=== PATIENT | female | born 1955 | race Caucasian/White ===

== ENCOUNTER 2022-06-24 20:05 | Observation (INO) ==
--- NOTE | 2022-06-24 20:37 | Emergency Department Note ---
Impression & Plan Elevated troponin I level, Numbness and tingling in left arm ED Provider Note NAME: ZCAH CARTAGENA AGE: 66 SEX: F : 1955 ARRIVES VIA: Walk-In INFORMANT: Patient, ED PROVIDER(S): Manjit Valderrama MD CHIEF COMPLAINT: Left upper extremity tingling, dizziness MEDICAL DECISION MAKING: Patient presented for left upper extremity tingling and dizziness. The patient did have blood work completed along with an EKG. I did call the lab to add a troponin is protocols have been initiated. CT of the head was obtained. I did review the CT which shows the possibility of blood versus calcification which was also commented on by the reading physician Rm Camejo MD. the patient does complain of some left upper extremity soreness but does not have any overt weakness at least on exam. Good [id number]. There is no evidence of any possible shift seen on her CT of the head. Repeat EKG was obtained as the patient's symptoms initially lasted 30 minutes and had since resolved but then returned upon going to CAT scan. The patient's initial troponin is negative but a repeat was running. The patient has a normal H&H and platelet count with very mild leukopenia at 4.5. Kidney function is unremarkable. Coags unremarkable. Patient's repeat troponin was 18. I did order aspirin but the inpatient service did not want this. Lyme's test and COVID-negative. I did speak with Dr. York with [facility] neurology who did review the imaging. He states that he believes this area to be most likely a calcification less likely blood and either recommended an MRI versus a repeat CT. MRI was ordered. Patient did receive nitro. The patient has no further symptoms at this time. I did discuss the case with the on-call ospitalist service Dr. Pittman and the patient was admitted to the medicine service. The patient's third EKG did show T wave inversions which were not present prior but the patient has no ST elevations. Patient has no current symptoms. The patient has never had any chest pains. Most recent troponin is 18, slightly elevated. ASA ordered but the inpatient service did not want any antiplatelets because of the CT of the head findings prior to MRI, and thus did not want heparin to be ordered either. MRI was pending at the time of admission. Prior /Outside records reviewed: None Differential diagnosis: Infection, dehydration, metabolic abnormality, hypo/hyperglycemia, electrolyte disturbance, anemia, hypoxia, cardiac sources, intracerebral event, toxicologic, neurologic, as well as other pathologies. Diagnostics, as interpreted by me: ECG: Sinus bradycardia, rate of 50, normal intervals normal axis T wave version anteriorly with ST depressions laterally. Repeat EKG interpreted by me sinus bradycardia, rate of 59, normal intervals normal axis no ST elevations. Repeat EKG interpreted by me Sinus bradycardia rate of 56, normal intervals normal axis T wave versions anteriorly no ST depressions in the lateral leads. T wave inversion in [address] elevations. Cardiac monitoring: An order was placed for continuous cardiac monitoring. The monitor shows a rate of 62 with sinus rhythm. Patient was placed on pulse oximetry Medical decision rules: None Imaging studies: See below I informally reviewed the patient's CT of the head which does show calcification versus small area of blood at the falx HPI: Patient presents with daughter at bedside due to concern for left upper extremity tingling. Patient states that this initially started around the time of dinner and she got very lightheaded and dizzy. No reported head headache. Patient denies any recent falls or trauma no prior history of stroke or mini stroke. Patient denies any prior history of heart or lung disease. No leg swelling or calf pain. Patient's initial episode lasted approximate 30 minutes and resolved and upon presentation the emergency department seem to have improved but this did worsen upon going to CAT scan. Patient denies any chest pains or shortness of breath. The patient does complain of generalized weakness as well as dizziness. Patient denies any nausea or vomiting and no diarrhea. No infectious symptoms. Daughter reported that patient's speech was slow and deliberate but no obvious slurring or dysarthria. Patient has had some recent stress ongoing as her dog was recently hit by a car which she witnessed. PAST MEDICAL HISTORY: See Below PAST SURGICAL HISTORY: See Below SOCIAL HISTORY: See Below HOME MEDICATIONS: See Below ALLERGIES: See Below VITALS: See Below PHYSICAL EXAMINATION: GENERAL: NAD, wearing a mask, non-toxic. EYE EXAM: Normal conjunctiva. PERRL, no anisocoria and EOM's grossly intact w/o pain. NECK: Supple, no nuchal rigidity, no adenopathy, non-tender. No signs of meningismus. FROM of the neck with good chin to chest and neck extension. No stridor. LUNGS: Clear to auscultation. Normal chest wall mechanics. HEART: NSR, no MRG. ABDOMEN: Abdomen soft, non-tender, no masses, no rebound or guarding. BACK: No CVA TTP. SKIN: No rashes and no bruising. UPPER EXTREMITIES: Upper extremities are grossly normal. LOWER EXTREMITIES: Grossly normal, no edema. NEURO EXAM: A&O x3, cranial nerves II-XII grossly intact, normal speech, moves all 4 extremities. Good [id number], no drift and no sensory deficits. 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); Hx Alcohol Use: Yes Alcohol type: beer and wine Hx Substance Use: No Preferred Language: Citizen Of [place] Communication Ability: Effective Trade Sales Assistant Required: No Beliefs That Will Affect Care: None Current Living Situation: Alone Other Information That Helps Us Care for You: No Feels Safe at Home: Yes Safety Concerns: Feels Safe At This Time Assistive Devices: None Allergies Allergies Allergy/AdvReac Type Severity Reaction Status Date / Time No Known Allergies Allergy Unverified 06/24/22 22:26 Home Meds Home Medications Medication Instructions Recorded Confirmed losartan 50 mg tablet 50 mg PO HS 06/24/22 06/24/22 Previous Rx's Medication Instructions Recorded aspirin 81 mg tablet,delayed 81 mg PO DAILY #90 tabs 06/25/22 release atorvastatin 40 mg tablet 40 mg PO HS #30 tabs 06/25/22 metoprolol succinate 100 mg 50 mg PO QAM #30 tabs 06/25/22 tablet,extended release 24 hr Results & Data (ED) Vital Signs Vital Signs - 24 hr 06/24/22 20:22 06/24/22 20:49 06/24/22 20:52 Temperature 36.6 C Temperature Source Temporal Artery Scan Pulse Rate 60 59 L Pulse Rate [Apical] 59 L Pulse Rhythm [Apical] Pulse Strength [Apical] Respiratory Rate 18 14 Respiratory Effort / Characteristics Non-Labored Spontaneous Respiratory Depth Normal Respiratory Pattern Blood Pressure 169/101 H Blood Pressure [Right Arm] 144/81 H Blood Pressure Mean 123 Blood Pressure Mean [Right Arm] 102 Blood Pressure Position [Right Arm] Pulse Oximetry 98 96 Oxygen Delivery Method Room Air Room Air Sepsis Recent Fever Within 48 Hours No Sepsis New/Unexplained Change in Mental Status No Sepsis Action Taken by Nursing No Action Required EWS Level of Consciousness - Last Result EWS Temperature - Last Result EWS Respiratory Rate - Last Result EWS Oxygen Saturation - Last Result EWS Oxygen in Use - Last Result EWS Score EWS Clinical Risk 06/24/22 21:31 06/24/22 23:00 06/25/22 01:32 Temperature 36.5 C Temperature Source Oral Pulse Rate Pulse Rate [Apical] 59 L 59 L 60 Pulse Rhythm [Apical] Regular Pulse Strength [Apical] Normal Respiratory Rate 16 18 18 Respiratory Effort / Characteristics Non-Labored Respiratory Depth Normal Respiratory Pattern Regular Blood Pressure Blood Pressure [Right Arm] 130/79 145/78 H 153/90 H Blood Pressure Mean Blood Pressure Mean [Right Arm] 96 100 111 Blood Pressure Position [Right Arm] Lying Pulse Oximetry 97 97 97 Oxygen Delivery Method Room Air Room Air Room Air Sepsis Recent Fever Within 48 Hours Sepsis New/Unexplained Change in Mental Status Sepsis Action Taken by Nursing EWS Level of Consciousness - Last Result EWS Temperature - Last Result EWS Respiratory Rate - Last Result EWS Oxygen Saturation - Last Result EWS Oxygen in Use - Last Result EWS Score EWS Clinical Risk 06/25/22 03:09 06/25/22 03:11 06/25/22 01:38 Temperature 36.4 C L Temperature Source Oral Pulse Rate 76 Pulse Rate [Apical] 64 Pulse Rhythm [Apical] Pulse Strength [Apical] Respiratory Rate 18 Respiratory Effort / Characteristics Respiratory Depth Respiratory Pattern Blood Pressure Blood Pressure [Right Arm] 165/97 H Blood Pressure Mean Blood Pressure Mean [Right Arm] 119 Blood Pressure Position [Right Arm] Semi-fowlers Pulse Oximetry 97 Oxygen Delivery Method Room Air Sepsis Recent Fever Within 48 Hours Sepsis New/Unexplained Change in Mental Status Sepsis Action Taken by Nursing EWS Level of Consciousness - Last Result Spontaneously Alert EWS Temperature - Last Result 36.4 EWS Respiratory Rate - Last Result 18 EWS Oxygen Saturation - Last Result 97 EWS Oxygen in Use - Last Result No EWS Score 0 EWS Clinical Risk Low Risk 06/25/22 07:00 06/25/22 08:00 06/25/22 09:11 Temperature 36.5 C Temperature Source Oral Pulse Rate 64 Pulse Rate [Apical] 58 L 71 Pulse Rhythm [Apical] Pulse Strength [Apical] Respiratory Rate 16 Respiratory Effort / Characteristics Non-Labored Spontaneous Respiratory Depth Normal Respiratory Pattern Blood Pressure Blood Pressure [Right Arm] 135/73 145/77 H Blood Pressure Mean Blood Pressure Mean [Right Arm] 93 99 Blood Pressure Position [Right Arm] Lying Sitting Pulse Oximetry 97 Oxygen Delivery Method Room Air Sepsis Recent Fever Within 48 Hours Sepsis New/Unexplained Change in Mental Status Sepsis Action Taken by Nursing EWS Level of Consciousness - Last Result EWS Temperature - Last Result EWS Respiratory Rate - Last Result EWS Oxygen Saturation - Last Result EWS Oxygen in Use - Last Result EWS Score EWS Clinical Risk 06/25/22 07:01 06/25/22 11:00 06/25/22 11:01 Temperature 36.4 C L Temperature Source Oral Pulse Rate Pulse Rate [Apical] 55 L Pulse Rhythm [Apical] Pulse Strength [Apical] Respiratory Rate 18 Respiratory Effort / Characteristics Non-Labored Spontaneous Respiratory Depth Normal Respiratory Pattern Blood Pressure Blood Pressure [Right Arm] 155/86 H Blood Pressure Mean Blood Pressure Mean [Right Arm] 109 Blood Pressure Position [Right Arm] Lying Pulse Oximetry 97 Oxygen Delivery Method Room Air Sepsis Recent Fever Within 48 Hours Sepsis New/Unexplained Change in Mental Status Sepsis Action Taken by Nursing EWS Level of Consciousness - Last Result Spontaneously Alert Spontaneously Alert EWS Temperature - Last Result 36.5 36.4 EWS Respiratory Rate - Last Result 16 18 EWS Oxygen Saturation - Last Result 97 97 EWS Oxygen in Use - Last Result No No EWS Score 0 0 EWS Clinical Risk Low Risk Low Risk Home Medications Current Medication List: was personally reviewed by me Laboratory Data Attestation: I reviewed the patient's lab results. 06/24/22 20:32 06/24/22 20:32 Lab Results 06/24/22 06/24/22 06/24/22 Range/Units 20:32 20:32 20:32 WBC 4.50 L (4.8-10.8) K/ul RBC 3.94 L (4.20-5.40) M/uL Hgb 12.8 (12.0-16.0) g/dl Hct 37.1 (37.0-47.0) % MCV 94.2 (80.0-100.0) fL MCH 32.5 (25.0-34.0) pg MCHC 34.5 (32.0-36.0) g/dL RDW Std Deviation 42.2 (36.4-46.3) fL RDW Coeff of Leslie 12.0 (11.5-14.5) % Plt Count 362 (130-400) K/uL MPV 9.7 (9.4-12.4) fL Immature Gran % (Auto) % Neut % (Auto) % Lymph % (Auto) % [place] % (Auto) % Eos % (Auto) % Baso % (Auto) % Neut # (Auto) (1.40-6.50) K/uL Lymph # (Auto) (1.2-3.4) K/uL [place] # (Auto) (0.11-0.59) K/uL Eos # (Auto) (0-0.50) K/uL Baso # (Auto) (0-0.2) K/uL Immature Gran # (Auto) (0.01-0.20) K/uL PT 11.4 (9.0-12.0) Seconds INR 1.0 (0.9-1.1) APTT 27.2 (21.0-31.0) Seconds PTT Ratio 1.0 D-Dimer (0-500) ug/L FEU Sodium 139 (136-145) mmol/L Potassium 3.8 (3.5-5.1) mmol/L Chloride 107 (98-107) mmol/L Carbon Dioxide 24 (21-32) mmol/L Anion Gap 8 (3-11) BUN 18 (6-23) mg/dl Creatinine 0.72 (0.6-1.2) mg/dl Est Cr Clr Drug Dosing 67.3 ml/min Est GFR ( Amer) 101.1 ml/min Est GFR (Non-Af Amer) 87.3 ml/min BUN/Creatinine Ratio 25.0 H (10-20) Glucose 110 H (70-99(Fasting)) mg/dl Estimat Average Glucose mg/dl Hemoglobin A1c (4.5-5.6) % Calcium 9.1 (8.6-10.3) mg/dl Magnesium (1.7-2.4) mg/dl Total Bilirubin 0.6 (0.2-1.0) mg/dl AST 20 (13-39) U/L ALT 11 (7-52) U/L Alkaline Phosphatase 57 (34-104) U/L Troponin I High Sens 3.8 (0-14) pg/ml Total Protein 6.5 (6.0-8.3) gm/dl Albumin 4.1 (3.4-5.0) gm/dl Globulin 2.4 L (2.5-4.0) gm/dl Albumin/Globulin Ratio 1.7 (0.9-2) Triglycerides (0-150) mg/dl Cholesterol (0-200) mg/dl LDL Cholesterol, Calc mg/dl VLDL Cholesterol, Calc (0-30) mg/dl HDL Cholesterol mg/dl Cholesterol/HDL Ratio (0-5) TSH (0.300-4.500) uIu/ml Lyme Disease IgG Ab (Negative) Lyme Disease IgM Ab (Negative) SARS-CoV-2, RNA, NAAT (NEGATIVE) 06/24/22 06/24/22 06/24/22 Range/Units 20:32 20:32 20:32 WBC (4.8-10.8) K/ul RBC (4.20-5.40) M/uL Hgb (12.0-16.0) g/dl Hct (37.0-47.0) % MCV (80.0-100.0) fL MCH (25.0-34.0) pg MCHC (32.0-36.0) g/dL RDW Std Deviation (36.4-46.3) fL RDW Coeff of Leslie (11.5-14.5) % Plt Count (130-400) K/uL MPV (9.4-12.4) fL Immature Gran % (Auto) % Neut % (Auto) % Lymph % (Auto) % [place] % (Auto) % Eos % (Auto) % Baso % (Auto) % Neut # (Auto) (1.40-6.50) K/uL Lymph # (Auto) (1.2-3.4) K/uL [place] # (Auto) (0.11-0.59) K/uL Eos # (Auto) (0-0.50) K/uL Baso # (Auto) (0-0.2) K/uL Immature Gran # (Auto) (0.01-0.20) K/uL PT (9.0-12.0) Seconds INR (0.9-1.1) APTT (21.0-31.0) Seconds PTT Ratio D-Dimer (0-500) ug/L FEU Sodium (136-145) mmol/L Potassium (3.5-5.1) mmol/L Chloride (98-107) mmol/L Carbon Dioxide (21-32) mmol/L Anion Gap (3-11) BUN (6-23) mg/dl Creatinine (0.6-1.2) mg/dl Est Cr Clr Drug Dosing ml/min Est GFR ( Amer) ml/min Est GFR (Non-Af Amer) ml/min BUN/Creatinine Ratio (10-20) Glucose (70-99(Fasting)) mg/dl Estimat Average Glucose 120 mg/dl Hemoglobin A1c 5.8 H (4.5-5.6) % Calcium (8.6-10.3) mg/dl Magnesium (1.7-2.4) mg/dl Total Bilirubin (0.2-1.0) mg/dl AST (13-39) U/L ALT (7-52) U/L Alkaline Phosphatase (34-104) U/L Troponin I High Sens (0-14) pg/ml Total Protein (6.0-8.3) gm/dl Albumin (3.4-5.0) gm/dl Globulin (2.5-4.0) gm/dl Albumin/Globulin Ratio (0.9-2) Triglycerides (0-150) mg/dl Cholesterol (0-200) mg/dl LDL Cholesterol, Calc mg/dl VLDL Cholesterol, Calc (0-30) mg/dl HDL Cholesterol mg/dl Cholesterol/HDL Ratio (0-5) TSH 1.256 (0.300-4.500) uIu/ml Lyme Disease IgG Ab Negative (Negative) Lyme Disease IgM Ab Negative (Negative) SARS-CoV-2, RNA, NAAT (NEGATIVE) 06/24/22 06/24/22 06/24/22 Range/Units 20:32 22:22 22:23 WBC (4.8-10.8) K/ul RBC (4.20-5.40) M/uL Hgb (12.0-16.0) g/dl Hct (37.0-47.0) % MCV (80.0-100.0) fL MCH (25.0-34.0) pg MCHC (32.0-36.0) g/dL RDW Std Deviation (36.4-46.3) fL RDW Coeff of Leslie (11.5-14.5) % Plt Count (130-400) K/uL MPV (9.4-12.4) fL Immature Gran % (Auto) % Neut % (Auto) % Lymph % (Auto) % [place] % (Auto) % Eos % (Auto) % Baso % (Auto) % Neut # (Auto) (1.40-6.50) K/uL Lymph # (Auto) (1.2-3.4) K/uL [place] # (Auto) (0.11-0.59) K/uL Eos # (Auto) (0-0.50) K/uL Baso # (Auto) (0-0.2) K/uL Immature Gran # (Auto) (0.01-0.20) K/uL PT (9.0-12.0) Seconds INR (0.9-1.1) APTT (21.0-31.0) Seconds PTT Ratio D-Dimer < 190 (0-500) ug/L FEU Sodium (136-145) mmol/L Potassium (3.5-5.1) mmol/L Chloride (98-107) mmol/L Carbon Dioxide (21-32) mmol/L Anion Gap (3-11) BUN (6-23) mg/dl Creatinine (0.6-1.2) mg/dl Est Cr Clr Drug Dosing ml/min Est GFR ( Amer) ml/min Est GFR (Non-Af Amer) ml/min BUN/Creatinine Ratio (10-20) Glucose (70-99(Fasting)) mg/dl Estimat Average Glucose mg/dl Hemoglobin A1c (4.5-5.6) % Calcium (8.6-10.3) mg/dl Magnesium 2.2 (1.7-2.4) mg/dl Total Bilirubin (0.2-1.0) mg/dl AST (13-39) U/L ALT (7-52) U/L Alkaline Phosphatase (34-104) U/L Troponin I High Sens 18.1 H D (0-14) pg/ml Total Protein (6.0-8.3) gm/dl Albumin (3.4-5.0) gm/dl Globulin (2.5-4.0) gm/dl Albumin/Globulin Ratio (0.9-2) Triglycerides (0-150) mg/dl Cholesterol (0-200) mg/dl LDL Cholesterol, Calc mg/dl VLDL Cholesterol, Calc (0-30) mg/dl HDL Cholesterol mg/dl Cholesterol/HDL Ratio (0-5) TSH (0.300-4.500) uIu/ml Lyme Disease IgG Ab (Negative) Lyme Disease IgM Ab (Negative) SARS-CoV-2, RNA, NAAT NEGATIVE (NEGATIVE) 06/25/22 06/25/22 06/25/22 Range/Units 03:30 03:30 03:30 WBC 4.71 L (4.8-10.8) K/ul RBC 3.72 L (4.20-5.40) M/uL Hgb 12.0 (12.0-16.0) g/dl Hct 35.8 L (37.0-47.0) % MCV 96.2 (80.0-100.0) fL MCH 32.3 (25.0-34.0) pg MCHC 33.5 (32.0-36.0) g/dL RDW Std Deviation 42.3 (36.4-46.3) fL RDW Coeff of Leslie 12.0 (11.5-14.5) % Plt Count 345 (130-400) K/uL MPV 9.7 (9.4-12.4) fL Immature Gran % (Auto) 0.0 % Neut % (Auto) 49.4 % Lymph % (Auto) 35.7 % [place] % (Auto) 11.3 % Eos % (Auto) 3.0 % Baso % (Auto) 0.6 % Neut # (Auto) 2.33 (1.40-6.50) K/uL Lymph # (Auto) 1.68 (1.2-3.4) K/uL [place] # (Auto) 0.53 (0.11-0.59) K/uL Eos # (Auto) 0.14 (0-0.50) K/uL Baso # (Auto) 0.03 (0-0.2) K/uL Immature Gran # (Auto) 0.00 L (0.01-0.20) K/uL PT (9.0-12.0) Seconds INR (0.9-1.1) APTT 30.6 (21.0-31.0) Seconds PTT Ratio 1.1 D-Dimer (0-500) ug/L FEU Sodium 139 (136-145) mmol/L Potassium 3.8 (3.5-5.1) mmol/L Chloride 107 (98-107) mmol/L Carbon Dioxide 25 (21-32) mmol/L Anion Gap 7 (3-11) BUN 18 (6-23) mg/dl Creatinine 0.58 L (0.6-1.2) mg/dl Est Cr Clr Drug Dosing 82.5 ml/min Est GFR ( Amer) 111.3 ml/min Est GFR (Non-Af Amer) 96.1 ml/min BUN/Creatinine Ratio 31.0 H (10-20) Glucose 102 H (70-99(Fasting)) mg/dl Estimat Average Glucose mg/dl Hemoglobin A1c (4.5-5.6) % Calcium 8.6 (8.6-10.3) mg/dl Magnesium (1.7-2.4) mg/dl Total Bilirubin (0.2-1.0) mg/dl AST (13-39) U/L ALT (7-52) U/L Alkaline Phosphatase (34-104) U/L Troponin I High Sens 377.1 H* D (0-14) pg/ml Total Protein (6.0-8.3) gm/dl Albumin (3.4-5.0) gm/dl Globulin (2.5-4.0) gm/dl Albumin/Globulin Ratio (0.9-2) Triglycerides 50 (0-150) mg/dl Cholesterol 172 (0-200) mg/dl LDL Cholesterol, Calc 85 mg/dl VLDL Cholesterol, Calc 10 (0-30) mg/dl HDL Cholesterol 77 mg/dl Cholesterol/HDL Ratio 2.2 (0-5) TSH (0.300-4.500) uIu/ml Lyme Disease IgG Ab (Negative) Lyme Disease IgM Ab (Negative) SARS-CoV-2, RNA, NAAT (NEGATIVE) 06/25/22 Range/Units 08:16 WBC (4.8-10.8) K/ul RBC (4.20-5.40) M/uL Hgb (12.0-16.0) g/dl Hct (37.0-47.0) % MCV (80.0-100.0) fL MCH (25.0-34.0) pg MCHC (32.0-36.0) g/dL RDW Std Deviation (36.4-46.3) fL RDW Coeff of Leslie (11.5-14.5) % Plt Count (130-400) K/uL MPV (9.4-12.4) fL Immature Gran % (Auto) % Neut % (Auto) % Lymph % (Auto) % [place] % (Auto) % Eos % (Auto) % Baso % (Auto) % Neut # (Auto) (1.40-6.50) K/uL Lymph # (Auto) (1.2-3.4) K/uL [place] # (Auto) (0.11-0.59) K/uL Eos # (Auto) (0-0.50) K/uL Baso # (Auto) (0-0.2) K/uL Immature Gran # (Auto) (0.01-0.20) K/uL PT (9.0-12.0) Seconds INR (0.9-1.1) APTT (21.0-31.0) Seconds PTT Ratio D-Dimer (0-500) ug/L FEU Sodium (136-145) mmol/L Potassium (3.5-5.1) mmol/L Chloride (98-107) mmol/L Carbon Dioxide (21-32) mmol/L Anion Gap (3-11) BUN (6-23) mg/dl Creatinine (0.6-1.2) mg/dl Est Cr Clr Drug Dosing ml/min Est GFR ( Amer) ml/min Est GFR (Non-Af Amer) ml/min BUN/Creatinine Ratio (10-20) Glucose (70-99(Fasting)) mg/dl Estimat Average Glucose mg/dl Hemoglobin A1c (4.5-5.6) % Calcium (8.6-10.3) mg/dl Magnesium (1.7-2.4) mg/dl Total Bilirubin (0.2-1.0) mg/dl AST (13-39) U/L ALT (7-52) U/L Alkaline Phosphatase (34-104) U/L Troponin I High Sens 1283.7 H* D (0-14) pg/ml Total Protein (6.0-8.3) gm/dl Albumin (3.4-5.0) gm/dl Globulin (2.5-4.0) gm/dl Albumin/Globulin Ratio (0.9-2) Triglycerides (0-150) mg/dl Cholesterol (0-200) mg/dl LDL Cholesterol, Calc mg/dl VLDL Cholesterol, Calc (0-30) mg/dl HDL Cholesterol mg/dl Cholesterol/HDL Ratio (0-5) TSH (0.300-4.500) uIu/ml Lyme Disease IgG Ab (Negative) Lyme Disease IgM Ab (Negative) SARS-CoV-2, RNA, NAAT (NEGATIVE) Administered Medications Sodium Chloride (Nss 1000ml) 1,000 mls @ 80 mls/hr IV .[id number] CALEB Stop: 07/25/22 14:14 Last Admin: 06/25/22 14:40 Dose: 80 mls/hr Documented By: ERICKA Metoprolol Succinate (Metoprolol Succ 25mg Ext Rel Tab) 25 mg PO QAM [facility] Stop: 07/25/22 08:59 Last Admin: 06/25/22 09:13 Dose: 25 mg Documented By: VANDANA Co-signed By: EDD Discontinued Medications Aspirin (Aspirin Chew 324 Mg) 324 mg PO NOW STA Stop: 06/24/22 22:54 Last Admin: 06/24/22 23:43 Dose: Not Given Documented By: TERESA Aspirin (Aspirin Chew 324 Mg) 324 mg PO NOW STA Stop: 06/25/22 01:53 Last Admin: 06/25/22 02:01 Dose: 324 mg Documented By: TJ Aspirin (Aspirin 81 Mg Chew) Confirm Administered Dose 81 mg .ROUTE .STK-MED ONE Stop: 06/25/22 09:09 Last Admin: 06/25/22 09:13 Dose: 81 mg Documented By: AERossy Co-signed By: EDD Fentanyl Citrate (Fentanyl Citrate Pf 100 Mcg/2 Ml Vial) Confirm Administered Dose 100 mcg .ROUTE .STK-MED ONE Stop: 06/25/22 13:38 Last Increment: 06/25/22 14:07 Dose: 12.5 mcg Documented By: LI Gadobutrol (Gadobutrol 65ml Vial) 5.5 ml IV ONCE ONE Stop: 06/25/22 00:48 Last Admin: 06/25/22 00:48 Dose: 5.5 ml Documented By: GINNY Heparin Sodium (Porcine) (Heparin Sod 5,000 Unit/0.5 Ml Vial) 5,000 units SQ Q8 CALEB Stop: 07/25/22 05:59 Last Admin: 06/25/22 06:14 Dose: 5,000 units Documented By: TJ Heparin Sodium (Porcine) (Heparin Sod (Porcine) 1000 Unit/Ml) 3,000 units IV TODAY@1130 [facility] Stop: 06/25/22 14:00 Last Admin: 06/25/22 11:36 Dose: 3,000 units Documented By: ERICKA Co-signed By: MANDIE Heparin Sodium (Porcine) (Heparin (Porcine) 1000 Unit/Ml 10 Ml ([employer] Use Only)) Confirm Administered Dose 10,000 units .ROUTE .STK-MED ONE Stop: 06/25/22 13:38 Last Admin: 06/25/22 14:08 Dose: 2,500 units Documented By: LI Heparin Sodium/Dextrose (Heparin 50816 Unit/500 Ml D5w) Confirm Administered Dose 25,000 units IV .STK-MED ONE Stop: 06/25/22 11:08 Last Admin: 06/25/22 11:25 Dose: Not Given Documented By: ERICKA Heparin Sodium/Sodium Chloride (Heparin In Nss Infusion 1000 Unit/500 Ml (2 U/Ml) Bag) Confirm Administered Dose 3,000 units IV .STK-MED ONE Stop: 06/25/22 13:38 Last Admin: 06/25/22 14:39 Dose: Not Given Documented By: ERICKA Sodium Chloride (Nss 1000ml) 500 mls @ 999 mls/hr IV .Q31M ONE Stop: 06/24/22 22:43 Last Infusion: 06/24/22 23:18 Dose: 0 mls/hr Documented By: Admin: 06/24/22 22:21 Dose: 999 mls/hr Documented By: TERESA Lactated Ringer's (Lr) 1,000 mls @ 60 mls/hr IV .[id number] ONE Stop: 06/25/22 16:43 Last Infusion: 06/25/22 14:59 Dose: 0 mls/hr Documented By: Infusion: 06/25/22 12:30 Dose: 0 mls/hr Documented By: Admin: 06/25/22 01:46 Dose: 60 mls/hr Documented By: TJ Heparin Sodium/Dextrose (Heparin Sodium/Dextrose) 25,000 units in 500 mls @ 13 mls/hr IV .Q24H CALEB; Protocol Stop: 07/25/22 11:29 Last Titration: 06/25/22 14:24 Dose: 0 units/hr, 0 mls/hr Documented By: ERICKA Co-signed By: HECTOR Admin: 06/25/22 11:24 Dose: 650 units/hr, 13 mls/hr Documented By: ERICKA Co-signed By: MANDIE Lorazepam (Lorazepam 2 Mg/1 Ml Vial) 1 mg IV ONCE PRN PRN Reason: Anxiety/Agitation Last Admin: 06/24/22 23:15 Dose: 1 mg Documented By: TERESA Losartan Potassium (Losartan Potassium 50 Mg Tab) 50 mg PO NOW STA Stop: 06/24/22 23:58 Last Admin: 06/25/22 01:46 Dose: 50 mg Documented By: TJ Midazolam HCl (Midazolam Hcl 1 Mg/Ml 2ml Vial) Confirm Administered Dose 2 mg .ROUTE .STK-MED ONE Stop: 06/25/22 13:38 Last Increment: 06/25/22 14:08 Dose: 1 mg Documented By: LI Nicardipine HCl (Nicardipine Hcl Inj 2.5 Mg/Ml 10 Ml Amp) Confirm Administered Dose 25 mg .ROUTE .STK-MED ONE Stop: 06/25/22 13:38 Last Admin: 06/25/22 14:40 Dose: Not Given Documented By: ERICKA Nitroglycerin (Nitroglycerin Sl 0.4 Mg/Tab Tab) 0.4 mg SL NOW STA Stop: 06/24/22 22:13 Last Admin: 06/24/22 22:17 Dose: 0.4 mg Documented By: TERESA Nitroglycerin/Dextrose (Nitroglycerin/D5w 100mcg/Ml 20ml Syr) Confirm Administe red Dose 2,000 mcg .ROUTE .STK-MED ONE Stop: 06/25/22 13:39 Last Admin: 06/25/22 14:40 Dose: Not Given Documented By: ERICKA Imaging Data Radiologist's Impression: Chest X-Ray 06/24/22 23:09 XR chest 1V portable HISTORY: Atypical chest pain COMPARISON: None. FINDINGS: The lungs are clear. Cardiac silhouette is top normal in size. No pleural effusions. No pneumothorax. IMPRESSION: No acute process. ACT 112: Negative or not required by law. Electronically signed by: Donte Pichardo M.D. 06/25/2022 8:29 AM Shoulder X-Ray 06/24/22 23:57 XR shoulder LT min 2V routine CLINICAL HISTORY: Left arm numbness and pain. COMPARISON STUDY: None. FINDINGS: No fracture or dislocation within the left shoulder. Moderate degenerative changes noted within the left shoulder. No significant soft tissue swelling. IMPRESSION: Moderate osteoarthritis within the left shoulder. No acute fractures. ACT 112: Negative or not required by law. Electronically signed by: Donte Pichardo M.D. 06/25/2022 8:12 AM Carotid Doppler Study 06/25/22 01:53 BILATERAL CAROTID DOPPLER STUDY HISTORY: Left arm numbness. Transient ischemic attack. COMPARISON: None. TECHNIQUE: Real-time, grayscale, and color Doppler sonography of the carotid arteries was performed. Imaging reviewed in the transverse and longitudinal planes. All measurements were calculated based on NASCET criteria. FINDINGS: Antegrade flow is seen in the bilateral vertebral arteries. Minimal calcified plaque within the bilateral carotid bifurcations. The peak systolic velocity within the right ICA is 63 cm/s. The right systolic ratio is 1.3. The peak systolic velocity within the left ICA is 71 cm/s. The left systolic ratio is 1.3. IMPRESSION: No hemodynamically significant stenosis seen within the carotid arteries. ACT 112: Negative or not required by law. Electronically signed by: Donte Pichardo M.D. 06/25/2022 9:[address] 06/24/22 21:21 CR Exam(s): CT HEAD Without Contrast EXAM: CT Head Without Intravenous Contrast CLINICAL HISTORY: Reason for exam: numbness. TECHNIQUE: Axial computed tomography images of the head/brain without intravenous contrast. CTDI is 36.71 mGy and DLP is 537.48 mGy-cm. Automated exposure control was utilized for the study. A dose lowering technique was utilized adhering to the principles of ALARA. COMPARISON: No relevant prior studies available. FINDINGS: Brain: Hyperdense 4 mm focus along the left side of the falx (series 2 images 20 and 21). This may represent small subdural blood (if there is a history of trauma) versus nonspecific calcification. No mass-effect. No midline shift. Ventricles: Unremarkable. No ventriculomegaly. Bones/joints: Unremarkable. No acute fracture. Soft tissues: Unremarkable. Sinuses: Unremarkable as visualized. No acute sinusitis. Mastoid air cells: Unremarkable as visualized. No mastoid effusion. IMPRESSION: Hyperdense 4 mm focus along the left side of the falx (series 2 images 20 and 21). This may represent small subdural blood (if there is a history of trauma) versus nonspecific calcification. No mass-effect. No midline shift. Consider repeat exam in 24 hours. Communications: Verify Receipt Electronically signed by: Rm Camejo MD 06/24/22 21:49 PM Chest X-Ray 06/24/22 23:09 XR chest 1V portable HISTORY: Atypical chest pain COMPARISON: None. FINDINGS: The lungs are clear. Cardiac silhouette is top normal in size. No pleural effusions. No pneumothorax. IMPRESSION: No acute process. ACT 112: Negative or not required by law. Electronically signed by: Donte Pichardo M.D. 06/25/2022 8:29 AM Shoulder X-Ray 06/24/22 23:57 XR shoulder LT min 2V routine CLINICAL HISTORY: Left arm numbness and pain. COMPARISON STUDY: None. FINDINGS: No fracture or dislocation within the left shoulder. Moderate degenerative changes noted within the left shoulder. No significant soft tissue swelling. IMPRESSION: Moderate osteoarthritis within the left shoulder. No acute fractures. ACT 112: Negative or not required by law. Electronically signed by: Donte Pichardo M.D. 06/25/2022 8:12 AM Brain MRI 06/25/22 00:15 Exam(s): MRI HEAD W/WO Contrast IV Amt: 5.5cc gadavist EXAM: MR Head Without and With Intravenous Contrast CLINICAL HISTORY: Reason for exam: r/o SDH. TECHNIQUE: Magnetic resonance images of the head/brain without and with intravenous contrast in multiple planes. CONTRAST: Patient received 5.5cc gadavist of IV contrast COMPARISON: Comparison made to prior noncontrast head CT from June 24, 2022 at 9:39 PM. FINDINGS: Brain: Mild nonspecific white matter changes. The flow voids at the base of the brain are intact. There is a brightly enhancing dural base lesion along the anterior falx demonstrates the same size, shape and morphology of the dense lesion demonstrated on the prior head CT. No acute infarct. Ventricles: Unremarkable. No ventriculomegaly. Bones/joints: Unremarkable. Sinuses: Unremarkable as visualized. No acute sinusitis. Mastoid air cells: Unremarkable as visualized. No mastoid effusion. Orbits: Unremarkable as visualized. IMPRESSION: No evidence of extra-axial blood. The previously described dense lesion along the falx is consistent with a tiny meningioma Mild nonspecific white matter changes. Electronically signed by: Ese Henley MD 06/25/22 01:35 AM Head MRA 06/25/22 00:15 Exam(s): MRA HEAD Without Contrast EXAM: MR Angiography Head Without Intravenous Contrast CLINICAL HISTORY: Reason for exam: tia. TECHNIQUE: Magnetic resonance angiography images of the head without intravenous contrast. COMPARISON: No relevant prior studies available. FINDINGS: Right internal carotid artery: No acute findings. Intracranial segment is patent with no significant stenosis. No aneurysm. Right anterior cerebral artery: Unremarkable. No occlusion or significant stenosis. No aneurysm. Right middle cerebral artery: Unremarkable. No occlusion or significant stenosis. No aneurysm. Right posterior cerebral artery: Unremarkable. No occlusion or significant stenosis. No aneurysm. Right vertebral artery: Unremarkable as visualized. Left internal carotid artery: No acute findings. Intracranial segment is patent with no significant stenosis. No aneurysm. Left anterior cerebral artery: Unremarkable. No occlusion or significant stenosis. No aneurysm. Left middle cerebral artery: There is a focal stenosis of the proximal left M2 segment with a beaded appearance of the distal vessel. No aneurysm. Left posterior cerebral artery: Unremarkable. No occlusion or significant stenosis. No aneurysm. Left vertebral artery: Unremarkable as visualized. Basilar artery: Unremarkable. No occlusion or significant stenosis. No aneurysm. IMPRESSION: Findings concerning for a high-grade focal stenosis of the proximal left M2 segment with beaded appearance of the distal vessel concerning for acute thromboembolic disease. Electronically signed by: Ese Henley MD 06/25/22 01:08 AM Carotid Doppler Study 06/25/22 01:53 BILATERAL CAROTID DOPPLER STUDY HISTORY: Left arm numbness. Transient ischemic attack. COMPARISON: None. TECHNIQUE: Real-time, grayscale, and color Doppler sonography of the carotid arteries was performed. Imaging reviewed in the transverse and longitudinal planes. All measurements were calculated based on NASCET criteria. FINDINGS: Antegrade flow is seen in the bilateral vertebral arteries. Minimal calcified plaque within the bilateral carotid bifurcations. The peak systolic velocity within the right ICA is 63 cm/s. The right systolic ratio is 1.3. The peak systolic velocity within the left ICA is 71 cm/s. The left systolic ratio is 1.3. IMPRESSION: No hemodynamically significant stenosis seen within the carotid arteries. ACT 112: Negative or not required by law. Electronically signed by: Donte Pichardo M.D. 06/25/2022 9:14 AM Discharge Plan Visit Data Chief Complaint: TIA Symptoms Stated Complaint: LEFT ARM NUMB, FATIGUE, SHAKY ED Provider: Manjit Valderrama Discharge Problem: Elevated troponin I level, Numbness and tingling in left arm Patient Disposition: Admitted As Inpatient Condition: Good Discharge Instructions Interventions: ED Discharge Assessment Last Done: 06/25/22 00:42
[2022-06-24 20:47] LABS: Hematocrit (blood only) 37.1 % (37.0-47.0); Hemoglobin 12.8 g/dl (12.0-16.0); Mean Corpuscular Hemoglobin 32.5 pg (25.0-34.0); Mean Corpuscular Hgb Conc 34.5 g/dL (32.0-36.0); Mean Corpuscular Volume 94.2 fL (80.0-100.0); Mean Platelet Volume 9.7 fL (9.4-12.4); Platelet Count 362 K/uL (130-400); RDW Standard Deviation 42.2 fL (36.4-46.3); Red Blood Count 3.94 M/uL (4.20-5.40)
[2022-06-24 21:06] LABS: Albumin Globulin Ratio 1.7 (0.9-2); Albumin Level 4.1 gm/dl (3.4-5.0); Bilirubin,Total 0.6 mg/dl (0.2-1.0); Calcium 9.1 mg/dl (8.6-10.3); Creatinine Clr Calc Pharmacy 67.3 ml/min; Est GFR (African American) 101.1 ml/min; Est GFR (Non-African American) 87.3 ml/min; Globulin 2.4 gm/dl (2.5-4.0); Potassium 3.8 mmol/L (3.5-5.1); Total Protein 6.5 gm/dl (6.0-8.3)
[2022-06-24 21:17] LABS: Partial Thromboplastin Time 27.2 Seconds (21.0-31.0); Prothrombin Time 11.4 Seconds (9.0-12.0)
--- NOTE | 2022-06-24 21:50 | CT Scan Report ---
Exam(s): CT HEAD Without Contrast EXAM: CT Head Without Intravenous Contrast CLINICAL HISTORY: Reason for exam: numbness. TECHNIQUE: Axial computed tomography images of the head/brain without intravenous contrast. CTDI is 36.71 mGy and DLP is 537.48 mGy-cm. Automated exposure control was utilized for the study. A dose lowering technique was utilized adhering to the principles of ALARA. COMPARISON: No relevant prior studies available. FINDINGS: Brain: Hyperdense 4 mm focus along the left side of the falx (series 2 images 20 and 21). This may represent small subdural blood (if there is a history of trauma) versus nonspecific calcification. No mass-effect. No midline shift. Ventricles: Unremarkable. No ventriculomegaly. Bones/joints: Unremarkable. No acute fracture. Soft tissues: Unremarkable. Sinuses: Unremarkable as visualized. No acute sinusitis. Mastoid air cells: Unremarkable as visualized. No mastoid effusion. IMPRESSION: Hyperdense 4 mm focus along the left side of the falx (series 2 images 20 and 21). This may represent small subdural blood (if there is a history of trauma) versus nonspecific calcification. No mass-effect. No midline shift. Consider repeat exam in 24 hours. Communications: Verify Receipt Electronically signed by: Rm Camejo MD 06/24/22 21:49 PM
[2022-06-24] MEDS ORDERED: NITROGLYCERIN SL 0.4 MG/TAB TAB SL STA (22:12)
[2022-06-24] MEDS ORDERED: SODIUM CHLORIDE 0.9% 1000ML 500 ML IV ONE (22:13)
[2022-06-24 22:20] LABS: Troponin I High Sensitivity 3.8 pg/ml (0-14)
[2022-06-24] MEDS ORDERED: LORazepam 2 MG/1 ML VIAL IV PRN (22:53)
[2022-06-24] MEDS ORDERED: ASPIRIN CHEW 324 MG PO STA (22:53)
[2022-06-24 23:08] LABS: Troponin I High Sensitivity 18.1 pg/ml (0-14)
[2022-06-24 23:52] LABS: Lyme Ab IgG w/WB Rflx Negative (Negative); Lyme Ab IgM w/WB Rflx Negative (Negative)
[2022-06-24] MEDS ORDERED: LOSARTAN POTASSIUM 50 MG TAB PO STA (23:57)
--- NOTE | 2022-06-24 23:59 | History & Physical Report ---
Date of Service June 24, 2022 History of Present Illness Primary Care Provider: Poncho Marrero MD Allergies Allergy/AdvReac Type Severity Reaction Status Date / Time No Known Allergies Allergy Unverified 06/24/22 22:26 Home Medications Medication Instructions Recorded Confirmed Type losartan 50 mg tablet 50 mg PO HS 06/24/22 06/24/22 History metoprolol succinate 100 mg 100 mg PO QAM 06/24/22 06/24/22 History tablet,extended release 24 hr Past Med/Surg History Social History Smoking Status: Never smoker Preferred Language: Nepali Feels Safe at Home: Yes Results & Data Results & Data Vital Signs (Past 12 Hours) Vital Signs Temp Pulse Pulse Resp BP BP Pulse Ox 06/24/22 23:00 59 L 18 145/78 H 97 06/24/22 21:31 59 L 16 130/79 97 06/24/22 20:52 59 L 06/24/22 20:49 59 L 14 144/81 H 96 06/24/22 20:22 36.6 C 60 18 169/101 H 98 O2 Del Method 06/24/22 23:00 Room Air 06/24/22 21:31 Room Air 06/24/22 20:52 06/24/22 20:49 Room Air 06/24/22 20:22 Room Air Laboratory Results Laboratory Results WBC 4.50 K/ul (4.8-10.8) L 06/24/22 20:32 RBC 3.94 M/uL (4.20-5.40) L 06/24/22 20:32 Hgb 12.8 g/dl (12.0-16.0) 06/24/22 20:32 Hct 37.1 % (37.0-47.0) 06/24/22 20:32 MCV 94.2 fL (80.0-100.0) 06/24/22 20:32 MCH 32.5 pg (25.0-34.0) 06/24/22 20:32 MCHC 34.5 g/dL (32.0-36.0) 06/24/22 20:32 RDW Std Deviation 42.2 fL (36.4-46.3) 06/24/22 20:32 RDW Coeff of Leslie 12.0 % (11.5-14.5) 06/24/22 20:32 Plt Count 362 K/uL (130-400) 06/24/22 20:32 MPV 9.7 fL (9.4-12.4) 06/24/22 20:32 PT 11.4 Seconds (9.0-12.0) 06/24/22 20:32 INR 1.0 (0.9-1.1) 06/24/22 20:32 APTT 27.2 Seconds (21.0-31.0) 06/24/22 20:32 PTT Ratio 1.0 06/24/22 20:32 Sodium 139 mmol/L (136-145) 06/24/22 20:32 Potassium 3.8 mmol/L (3.5-5.1) 06/24/22 20:32 Chloride 107 mmol/L (98-107) 06/24/22 20:32 Carbon Dioxide 24 mmol/L (21-32) 06/24/22 20:32 Anion Gap 8 (3-11) 06/24/22 20:32 BUN 18 mg/dl (6-23) 06/24/22 20:32 Creatinine 0.72 mg/dl (0.6-1.2) 06/24/22 20:32 Est Cr Clr Drug Dosing 67.3 ml/min 06/24/22 20:32 Est GFR ( Amer) 101.1 ml/min 06/24/22 20:32 Est GFR (Non-Af Amer) 87.3 ml/min 06/24/22 20:32 BUN/Creatinine Ratio 25.0 (10-20) H 06/24/22 20:32 Glucose 110 mg/dl (70-99(Fasting)) H 06/24/22 20:32 Calcium 9.1 mg/dl (8.6-10.3) 06/24/22 20:32 Total Bilirubin 0.6 mg/dl (0.2-1.0) 06/24/22 20:32 AST 20 U/L (13-39) 06/24/22 20:32 ALT 11 U/L (7-52) 06/24/22 20:32 Alkaline Phosphatase 57 U/L (34-104) 06/24/22 20:32 Troponin I High Sens 18.1 pg/ml (0-14) H D 06/24/22 22:23 Total Protein 6.5 gm/dl (6.0-8.3) 06/24/22 20:32 Albumin 4.1 gm/dl (3.4-5.0) 06/24/22 20:32 Globulin 2.4 gm/dl (2.5-4.0) L 06/24/22 20:32 Albumin/Globulin Ratio 1.7 (0.9-2) 06/24/22 20:32 Lyme Disease IgG Ab Negative (Negative) 06/24/22 20:32 Lyme Disease IgM Ab Negative (Negative) 06/24/22 20:32 SARS-CoV-2, RNA, NAAT NEGATIVE (NEGATIVE) 06/24/22 22:[address] 06/24/22 21:21 CR Exam(s): CT HEAD Without Contrast EXAM: CT Head Without Intravenous Contrast CLINICAL HISTORY: Reason for exam: numbness. TECHNIQUE: Axial computed tomography images of the head/brain without intravenous contrast. CTDI is 36.71 mGy and DLP is 537.48 mGy-cm. Automated exposure control was utilized for the study. A dose lowering technique was utilized adhering to the principles of ALARA. COMPARISON: No relevant prior studies available. FINDINGS: Brain: Hyperdense 4 mm focus along the left side of the falx (series 2 images 20 and 21). This may represent small subdural blood (if there is a history of trauma) versus nonspecific calcification. No mass-effect. No midline shift. Ventricles: Unremarkable. No ventriculomegaly. Bones/joints: Unremarkable. No acute fracture. Soft tissues: Unremarkable. Sinuses: Unremarkable as visualized. No acute sinusitis. Mastoid air cells: Unremarkable as visualized. No mastoid effusion. IMPRESSION: Hyperdense 4 mm focus along the left side of the falx (series 2 images 20 and 21). This may represent small subdural blood (if there is a history of trauma) versus nonspecific calcification. No mass-effect. No midline shift. Consider repeat exam in 24 hours. Communications: Verify Receipt Electronically signed by: Rm Camejo MD 06/24/22 21:49 PM
[2022-06-25] MEDS ORDERED: traMADol HCL 50 MG TABLET PO PRN (00:02)
[2022-06-25] MEDS ORDERED: MoRPHine SULFATE 2 MG/ML CARP IV PRN (00:02)
[2022-06-25] MEDS ORDERED: LORazepam 0.5 MG TAB PO PRN (00:02)
[2022-06-25] MEDS ORDERED: PROMETHAZINE HCL 6.25 MG in SODIUM CHLORIDE 0.9% 50 ML IV PRN (00:02)
[2022-06-25] MEDS ORDERED: LACTATED RINGER'S 1,000 ML IV ONE (00:04)
--- NOTE | 2022-06-25 00:05 | History & Physical Report ---
Date of Service June 25, 2022 Assessment & Plan (1) TIA (transient ischemic attack): Plan: Abnormal MRA Hypertension elevated secondary to above Troponin elevation secondary to elevated BP Hyperglycemia rule out DM OBS PCU given troponin elevation Neurochecks Aspirin for secondary stroke prevention TTE, carotid Dopplers, check lipid profile for TIA work-up Follow troponin permissive hypertension for now given TIA concerns Neurology consult Re: TIA, abnormal MRA Check hemoglobin A1c DVT prophylaxis. Heparin subcu Full code Patient daughter requesting updates providers. Ms. Samira Ng, contact #[phone]. Text document was generated using [employer] voice recognition software. It may contain grammatical or spelling errors. Kindly contact undersigned for clarification of any documentation item in question. History of Present Illness Chief Complaint: LUE numbness Primary Care Provider: Poncho Marrero MD History obtained from patient, family, and records. Medical history significant for hypertension. Patient is a resident of she can take NEYDA Persaud currently in town to visit family for the weekend. Patient was having dinner with family a few hours ago when she experienced sudden onset of left upper extremity tingling numbness going to her armpit and neck. Left shoulder pain of about 2 days duration which patient attributed to chopping wood at home. Vague posterior headache symptoms. Patient could not talk from feeling weak as per daughter. No facial droop/or slurred speech. No actual arm or leg weakness. No actual chest pain. Some shortness of breath. No prior episodes. Tick bite a few weeks ago. Symptoms improving upon arrival at the ER. SBP 160s upon arrival at the ER. Medical History as above Surgical History : Appendectomy, lymph node biopsy, benign neck tumor surgery Family History : TIA, tonsillar cancer, heart disease, lung CA, RA Personal/Social history : Non-smoker, occasional EtOH intake, lives by self Allergies Allergy/AdvReac Type Severity Reaction Status Date / Time No Known Allergies Allergy Unverified 06/24/22 22:26 Home Medications Medication Instructions Recorded Confirmed Type losartan 50 mg tablet 50 mg PO HS 06/24/22 06/24/22 History metoprolol succinate 100 mg 100 mg PO QAM 06/24/22 06/24/22 History tablet,extended release 24 hr Past Med/Surg History Medical History (Updated 06/25/22 @ 03:15 by Mart Pittman MD) H/O: HTN (hypertension) HLD (hyperlipidemia) Surgical History (Updated 06/25/22 @ 01:20 by Manjit Valderrama MD) No pertinent past surgical history Social History Smoking Status: Never smoker Hx Alcohol Use: Yes Alcohol type: beer and wine Hx Substance Use: No Preferred Language: Yakut Communication Ability: Effective Public Health Engineer Required: No Beliefs That Will Affect Care: None Current Living Situation: Alone Other Information That Helps Us Care for You: No Feels Safe at Home: Yes Safety Concerns: Feels Safe At This Time Assistive Devices: Contacts Review of Systems Review of Systems: As per HPI, all other systems reviewed and negative Physical Exam Physical Exam: GENERAL: Comfortable, pleasant, underweight, looks younger for stated age, no respiratory distress SKIN: Normal color, warm HEENT: [place] palpebral conjunctivae, no ptosis, dry buccal mucosa NECK : Supple, no tenderness CHEST : CTA, no tenderness HEART : Bradycardic, no obvious murmurs ABDOMEN: no distention, nontender EXTREMITIES : No LE swelling/tenderness, no other conspicuous deformities noted NEUROLOGIC : Coherent, no facial asymmetry, no other gross focality Results & Data Results & Data Vital Signs (Past 12 Hours) Vital Signs Temp Pulse Pulse Resp BP BP Pulse Ox 06/24/22 23:00 59 L 18 145/78 H 97 06/24/22 21:31 59 L 16 130/79 97 06/24/22 20:52 59 L 06/24/22 20:49 59 L 14 144/81 H 96 06/24/22 20:22 36.6 C 60 18 169/101 H 98 O2 Del Method 06/24/22 23:00 Room Air 06/24/22 21:31 Room Air 06/24/22 20:52 06/24/22 20:49 Room Air 06/24/22 20:22 Room Air Laboratory Results Laboratory Results WBC 4.50 K/ul (4.8-10.8) L 06/24/22 20:32 RBC 3.94 M/uL (4.20-5.40) L 06/24/22 20:32 Hgb 12.8 g/dl (12.0-16.0) 06/24/22 20:32 Hct 37.1 % (37.0-47.0) 06/24/22 20:32 MCV 94.2 fL (80.0-100.0) 06/24/22 20:32 MCH 32.5 pg (25.0-34.0) 06/24/22 20: MCHC 34.5 g/dL (32.0-36.0) 06/24/22 20: RDW Std Deviation 42.2 fL (36.4-46.3) 06/24/22 20: RDW Coeff of Leslie 12.0 % (11.5-14.5) 06/24/22 20: Plt Count 362 K/uL (130-400) 06/24/22 20:32 MPV 9.7 fL (9.4-12.4) 06/24/22 20: PT 11.4 Seconds (9.0-12.0) 06/24/22 20: INR 1.0 (0.9-1.1) 06/24/22 20: APTT 27.2 Seconds (21.0-31.0) 06/24/22 20: PTT Ratio 1.0 06/24/22 20:32 D-Dimer < 190 ug/L FEU (0-500) 06/24/22 20:32 Sodium 139 mmol/L (136-145) 06/24/22 20:32 Potassium 3.8 mmol/L (3.5-5.1) 06/24/22 20:32 Chloride 107 mmol/L (98-107) 06/24/22 20:32 Carbon Dioxide 24 mmol/L (21-32) 06/24/22 20:32 Anion Gap 8 (3-11) 06/24/22 20:32 BUN 18 mg/dl (6-23) 06/24/22 20:32 Creatinine 0.72 mg/dl (0.6-1.2) 06/24/22 20:32 Est Cr Clr Drug Dosing 67.3 ml/min 06/24/22 20:32 Est GFR ( Amer) 101.1 ml/min 06/24/22 20:32 Est GFR (Non-Af Amer) 87.3 ml/min 06/24/22 20:32 BUN/Creatinine Ratio 25.0 (10-20) H 06/24/22 20:32 Glucose 110 mg/dl (70-99(Fasting)) H 06/24/22 20:32 Calcium 9.1 mg/dl (8.6-10.3) 06/24/22 20:32 Magnesium 2.2 mg/dl (1.7-2.4) 06/24/22 22:23 Total Bilirubin 0.6 mg/dl (0.2-1.0) 06/24/22 20:32 AST 20 U/L (13-39) 06/24/22 20:32 ALT 11 U/L (7-52) 06/24/22 20:32 Alkaline Phosphatase 57 U/L (34-104) 06/24/22 20:32 Troponin I High Sens 18.1 pg/ml (0-14) H D 06/24/22 22: Total Protein 6.5 gm/dl (6.0-8.3) 06/24/22 20:32 Albumin 4.1 gm/dl (3.4-5.0) 06/24/22 20:32 Globulin 2.4 gm/dl (2.5-4.0) L 06/24/22 20:32 Albumin/Globulin Ratio 1.7 (0.9-2) 06/24/22 20:32 TSH 1.256 uIu/ml (0.300-4.500) 06/24/22 20:32 Lyme Disease IgG Ab Negative (Negative) 06/24/22 20:32 Lyme Disease IgM Ab Negative (Negative) 06/24/22 20:32 SARS-CoV-2, RNA, NAAT NEGATIVE (NEGATIVE) 06/24/22 22:[address] 06/24/22 21:21 CR Exam(s): CT HEAD Without Contrast EXAM: CT Head Without Intravenous Contrast CLINICAL HISTORY: Reason for exam: numbness. TECHNIQUE: Axial computed tomography images of the head/brain without intravenous contrast. CTDI is 36.71 mGy and DLP is 537.48 mGy-cm. Automated exposure control was utilized for the study. A dose lowering technique was utilized adhering to the principles of ALARA. COMPARISON: No relevant prior studies available. FINDINGS: Brain: Hyperdense 4 mm focus along the left side of the falx (series 2 images 20 and 21). This may represent small subdural blood (if there is a history of trauma) versus nonspecific calcification. No mass-effect. No midline shift. Ventricles: Unremarkable. No ventriculomegaly. Bones/joints: Unremarkable. No acute fracture. Soft tissues: Unremarkable. Sinuses: Unremarkable as visualized. No acute sinusitis. Mastoid air cells: Unremarkable as visualized. No mastoid effusion. IMPRESSION: Hyperdense 4 mm focus along the left side of the falx (series 2 images 20 and 21). This may represent small subdural blood (if there is a history of trauma) versus nonspecific calcification. No mass-effect. No midline shift. Consider repeat exam in 24 hours. Communications: Verify Receipt Electronically signed by: Rm Camejo MD 06/24/22 21:49 PM Brain MRI 06/25/22 00:15 Exam(s): MRI HEAD W/WO Contrast IV Amt: 5.5cc gadavist EXAM: MR Head Without and With Intravenous Contrast CLINICAL HISTORY: Reason for exam: r/o SDH. TECHNIQUE: Magnetic resonance images of the head/brain without and with intravenous contrast in multiple planes. CONTRAST: Patient received 5.5cc gadavist of IV contrast COMPARISON: Comparison made to prior noncontrast head CT from June 24, 2022 at 9:39 PM. FINDINGS: Brain: Mild nonspecific white matter changes. The flow voids at the base of the brain are intact. There is a brightly enhancing dural base lesion along the anterior falx demonstrates the same size, shape and morphology of the dense lesion demonstrated on the prior head CT. No acute infarct. Ventricles: Unremarkable. No ventriculomegaly. Bones/joints: Unremarkable. Sinuses: Unremarkable as visualized. No acute sinusitis. Mastoid air cells: Unremarkable as visualized. No mastoid effusion. Orbits: Unremarkable as visualized. IMPRESSION: No evidence of extra-axial blood. The previously described dense lesion along the falx is consistent with a tiny meningioma Mild nonspecific white matter changes. Electronically signed by: Ese Henley MD 06/25/22 01:35 AM Head MRA 06/25/22 00:15 Exam(s): MRA HEAD Without Contrast EXAM: MR Angiography Head Without Intravenous Contrast CLINICAL HISTORY: Reason for exam: tia. TECHNIQUE: Magnetic resonance angiography images of the head without intravenous contrast. COMPARISON: No relevant prior studies available. FINDINGS: Right internal carotid artery: No acute findings. Intracranial segment is patent with no significant stenosis. No aneurysm. Right anterior cerebral artery: Unremarkable. No occlusion or significant stenosis. No aneurysm. Right middle cerebral artery: Unremarkable. No occlusion or significant stenosis. No aneurysm. Right posterior cerebral artery: Unremarkable. No occlusion or significant stenosis. No aneurysm. Right vertebral artery: Unremarkable as visualized. Left internal carotid artery: No acute findings. Intracranial segment is patent with no significant stenosis. No aneurysm. Left anterior cerebral artery: Unremarkable. No occlusion or significant stenosis. No aneurysm. Left middle cerebral artery: There is a focal stenosis of the proximal left M2 segment with a beaded appearance of the distal vessel. No aneurysm. Left posterior cerebral artery: Unremarkable. No occlusion or significant stenosis. No aneurysm. Left vertebral artery: Unremarkable as visualized. Basilar artery: Unremarkable. No occlusion or significant stenosis. No aneurysm. IMPRESSION: Findings concerning for a high-grade focal stenosis of the proximal left M2 segment with beaded appearance of the distal vessel concerning for acute thromboembolic disease. Electronically signed by: Ese Henley MD 06/25/22 01:08 AM Diagnostic Findings EKG as per my interpretation : Rate 50, sinus bradycardia, normal axis, T wave abnormalities anteroseptal leads Code Status & VTE Plan VTE Prophylaxis Plan VTE Prophylaxis will be ordered: Yes
[2022-06-25 00:20] LABS: Magnesium 2.2 mg/dl (1.7-2.4)
[2022-06-25 00:46] LABS: D Dimer < 190 ug/L FEU (0-500)
[2022-06-25] MEDS ORDERED: GADOBUTROL 65ML VIAL IV ONE (00:47)
--- NOTE | 2022-06-25 01:09 | Magnetic Resonance Report ---
Exam(s): MRA HEAD Without Contrast EXAM: MR Angiography Head Without Intravenous Contrast CLINICAL HISTORY: Reason for exam: tia. TECHNIQUE: Magnetic resonance angiography images of the head without intravenous contrast. COMPARISON: No relevant prior studies available. FINDINGS: Right internal carotid artery: No acute findings. Intracranial segment is patent with no significant stenosis. No aneurysm. Right anterior cerebral artery: Unremarkable. No occlusion or significant stenosis. No aneurysm. Right middle cerebral artery: Unremarkable. No occlusion or significant stenosis. No aneurysm. Right posterior cerebral artery: Unremarkable. No occlusion or significant stenosis. No aneurysm. Right vertebral artery: Unremarkable as visualized. Left internal carotid artery: No acute findings. Intracranial segment is patent with no significant stenosis. No aneurysm. Left anterior cerebral artery: Unremarkable. No occlusion or significant stenosis. No aneurysm. Left middle cerebral artery: There is a focal stenosis of the proximal left M2 segment with a beaded appearance of the distal vessel. No aneurysm. Left posterior cerebral artery: Unremarkable. No occlusion or significant stenosis. No aneurysm. Left vertebral artery: Unremarkable as visualized. Basilar artery: Unremarkable. No occlusion or significant stenosis. No aneurysm. IMPRESSION: Findings concerning for a high-grade focal stenosis of the proximal left M2 segment with beaded appearance of the distal vessel concerning for acute thromboembolic disease. Electronically signed by: Ese Henley MD 06/25/22 01:08 AM
--- NOTE | 2022-06-25 01:36 | Magnetic Resonance Report ---
Exam(s): MRI HEAD W/WO Contrast IV Amt: 5.5cc gadavist EXAM: MR Head Without and With Intravenous Contrast CLINICAL HISTORY: Reason for exam: r/o SDH. TECHNIQUE: Magnetic resonance images of the head/brain without and with intravenous contrast in multiple planes. CONTRAST: Patient received 5.5cc gadavist of IV contrast COMPARISON: Comparison made to prior noncontrast head CT from June 24, 2022 at 9:39 PM. FINDINGS: Brain: Mild nonspecific white matter changes. The flow voids at the base of the brain are intact. There is a brightly enhancing dural base lesion along the anterior falx demonstrates the same size, shape and morphology of the dense lesion demonstrated on the prior head CT. No acute infarct. Ventricles: Unremarkable. No ventriculomegaly. Bones/joints: Unremarkable. Sinuses: Unremarkable as visualized. No acute sinusitis. Mastoid air cells: Unremarkable as visualized. No mastoid effusion. Orbits: Unremarkable as visualized. IMPRESSION: No evidence of extra-axial blood. The previously described dense lesion along the falx is consistent with a tiny meningioma Mild nonspecific white matter changes. Electronically signed by: Ese Henley MD 06/25/22 01:35 AM
[2022-06-25] MEDS ORDERED: ACETAMINOPHEN 325 MG TAB PO PRN ×2 (01:38→14:08)
[2022-06-25] MEDS ORDERED: ASPIRIN CHEW 324 MG PO STA (01:52)
[2022-06-25 04:11] LABS: Basophils # (auto) 0.03 K/uL (0-0.2); Basophils % (auto) 0.6 %; Eosinophils # (auto) 0.14 K/uL (0-0.50); Hematocrit (blood only) 35.8 % (37.0-47.0); Lymphocytes # (auto) 1.68 K/uL (1.2-3.4); Lymphocytes % (auto) 35.7 %; Mean Corpuscular Hemoglobin 32.3 pg (25.0-34.0); Mean Corpuscular Hgb Conc 33.5 g/dL (32.0-36.0); Mean Corpuscular Volume 96.2 fL (80.0-100.0); Mean Platelet Volume 9.7 fL (9.4-12.4); Monocytes # (auto) 0.53 K/uL (0.11-0.59); Monocytes % (auto) 11.3 %; Neutrophils # (auto) 2.33 K/uL (1.40-6.50); Neutrophils % (auto) 49.4 %; Platelet Count 345 K/uL (130-400); RDW Standard Deviation 42.3 fL (36.4-46.3); Red Blood Count 3.72 M/uL (4.20-5.40); White Blood Count 4.71 K/ul (4.8-10.8)
[2022-06-25 04:43] LABS: Partial Thromboplastin Ratio 1.1; Partial Thromboplastin Time 30.6 Seconds (21.0-31.0)
[2022-06-25 04:47] LABS: Calcium 8.6 mg/dl (8.6-10.3); Chol HDL Ratio 2.2 (0-5); Creatinine Clr Calc Pharmacy 82.5 ml/min; Est GFR (African American) 111.3 ml/min; Est GFR (Non-African American) 96.1 ml/min; Potassium 3.8 mmol/L (3.5-5.1)
[2022-06-25 04:59] LABS: Troponin I High Sensitivity 377.1 pg/ml (0-14)
[2022-06-25] MEDS ORDERED: HEPARIN SOD 5,000 UNIT/0.5 ML VIAL SQ SCH (06:00)
--- NOTE | 2022-06-25 07:49 | Neurology Consultation ---
Date of Consultation June 25, 2022 Assessment & Plan (1) Arm pain, left: (2) Elevated troponin I level: (3) Numbness and tingling in left arm: (4) Intracranial vascular stenosis: Plan 66-year-old female presenting with proximal left arm and axillary pain, radiating to the neck and jaw, with associated diaphoresis, as well as some left upper extremity tingling. No evidence of acute or subacute stroke on MRI although does have what looks like an incidental left MCA stenosis on MRA of the head. No significant abnormality on carotid ultrasound. Significant troponin elevation. Patient's presentation seems to be more consistent with angina, rather than stroke or TIA at this point in time. I did discuss the above with Dr. Plasencia. Agree with cardiology consultation as ordered. Patient may need a cardiac catheterization. If, however, additional cardiac evaluation not felt to be acutely indicated, would recommend obtaining a CT angiogram of the head and neck, to reassess what looks like a left MCA stenosis. Again, this finding would not be related to her presenting symptoms, however. Could consider cardioembolism, however, no evidence of associated acute or subacute stroke on MRI. Patient does not appear to have significant dyslipidemia on her recent lipid panel. Her LDL is 85, total cholesterol 172. Nonetheless, could consider starting a statin. She does appear to be modestly hypertensive, at least in the context of this current hospitalization. She is on losartan and metoprolol as an outpatient. Continue to monitor her blood pressure, from a stroke management perspective, would allow for permissive hypertension, systolic blood pressure 140 to 160 mmHg acutely. However, would defer to cardiology regarding acute management. Again, would consider obtaining a CT angiogram of the head and neck to further evaluate what looks like a left MCA, M2 segment, stenosis. However, would first recommend cardiology evaluation as she may first need a cardiac catheterization. Discussed with attending hospitalist, Dr. Plasencia History of Present Illness Reason for Consultation: TIA, abnormal MRA Requesting Physician: Dr. Pittman Attending Physician: Mart Pittman MD History of Present Illness The patient is a 66-year-old female who presented to the emergency department yesterday with a chief complaint of left upper extremity tingling and dizziness. (See below for additional information regarding chief complaint which was primarily left axillary pain, radiating to the left upper limb, neck and jaw, per my interview of the patient this morning.) Symptoms started several hours prior to her presentation. No associated headache. No history of stroke or TIA. No history of heart disease. Episode lasted approximately 30 minutes and resolved prior to her evaluation in the emergency department. However, symptoms returned prior to undergoing CT evaluation. CT of the head revealed a hyperdensity along the left side of the falx potentially consistent with a calcification although a small subdural hematoma could not be completely excluded. The case was apparently discussed with a [facility] neurologist on-call who felt that the abnormality was most likely consistent with a calcification although had recommended further imaging evaluation. A follow-up brain MRI was unremarkable, no evidence of hemorrhage or acute stroke. The abnormality along the left side of the falx was felt to be most likely consistent with a tiny meningioma. I did review the images pertaining to the above CT of the head and brain MRI and agree that there is no significant worrisome pathology. An MRA of the brain was completed as well which did reveal a high-grade stenosis of the proximal left M2 segment with an associated beaded appearance within the distal vessel concerning for acute thromboembolic disease. An electrocardiogram revealed sinus bradycardia, incomplete right bundle branch block, 56 bpm. Outpatient medications for this patient include losartan and metoprolol. She does not appear to be on a statin or any blood thinners. She has been started on daily low-dose aspirin. Additional stroke evaluation has been ordered including echocardiography, carotid ultrasound, lipid panel. She is noted to be hypertensive. Her troponin has been elevated. Her glucose is slightly elevated. Upon further questioning, the patient indicates that she had presented with a chief complaint of pain in the left axillary region, radiating down the inner aspect of the left arm, and into the jaw, she recalls having some numbness and tingling affecting the left arm as well. She also recalls feeling diaphoretic and dizzy. Her symptoms have resolved this morning. She does endorse some increased stress recently as she unfortunately witnessed her dog get run over by a vehicle. She also indicates that she had a normal exercise cardiac stress test about 2 months ago in [place]. She denies a prior history of cardiac disease. She has not had any recurrence of her symptoms in the context of this hospitalization. 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); Hx Alcohol Use: Yes Alcohol type: beer and wine Hx Substance Use: No Preferred Language: Sami Communication Ability: Effective [place] Chief Required: No Beliefs That Will Affect Care: None Current Living Situation: Alone Feels Safe at Home: Yes Assistive Devices: Contacts Review of Systems Constitutional: no fever and no chills Eyes: no blind spots and no diplopia Ear, Nose, Mouth, Throat: no hearing loss Respiratory: no cough and no dyspnea Cardiovascular: as per Subjective / HPI and + radiating jaw, neck or arm pain; no chest pain Gastrointestinal: no nausea and no vomiting Genitourinary: no dysuria Musculoskeletal: + neck pain; no myalgia Integumentary: no rash and no lesions Neurologic: as per Subjective / HPI Psychiatric: no depression and no anxiety Hematologic / Lymphatic: no easy bleeding and no easy bruising Exam (Neuro) Constitutional: well developed and well nourished; no acute distress Eyes: normal visual dennis by confrontation, PERRL, normal accommodation and EOM intact bilaterally; no fundoscopic abnormality, no nystagmus and no papilledema Cardiovascular: Vessels: normal carotid upstroke; no carotid bruit Neurologic: Oriented to:: Person, Place and Time Memory: Short Term Intact and Remote Intact Attention: Span Intact and Concentration Intact Language: Naming Objects and Repeating Phrases Speech Fluency: negative Dysarthria Speech Aphasia: negative Aphasia Fund of Knowledge: Current Events, Past History and Vocabulary Cranial Nerves: Normal II (Visual dennis full to confrontation, visual acuity normal), III, IV, (Pupils equal round reactive to light and accommodation, eye movements normal), V (Facial sensation intact), VII (There is no facial droop or weakness), VIII (Hearing intact), IX, X (Palate elevates to midline), XI (Shoulder shrug intact) and XII (Tongue protrudes to midline) Motor Strength: Normal Lower Extremities and Normal Upper Extremities; negative Pronator Drift Motor Tone: Normal Lower Extremities and Normal Upper Extremities Muscle Bulk/Involuntary Movements: No Involuntary Movements; negative Muscle Atrophy Sensation: Light Touch Intact, Pain/Temperature Intact, Vibration Intact and Proprioception Intact Coordination: Normal; negative Limited Balance, Dysdiadochokinesia, Finger-Nose Abnormal or Heel-Goodson Abnormal Deep Tendon Reflexes: Rt Triceps: 2+, Lt Triceps: 2+, Rt Biceps: 2+, Lt Biceps: 2+, Rt Brachioradialis: 2+, Lt Brachioradialis: 2+, Rt Patellar: 2+, Lt Patellar: 2+, Rt Ankle: 2+ and Lt Ankle: 2+ Special Tests: negative Babinski Present Gait: Normal Station and Gait Results & Data Vital Signs (Past 12 Hours) Vital Signs Temp Pulse Pulse Resp BP BP Pulse Ox 06/25/22 07:00 36.5 C 58 L 16 135/73 97 06/25/22 01:38 76 06/25/22 03:09 36.4 C L 64 18 165/97 H 97 06/25/22 01:32 36.5 C 60 18 153/90 H 97 06/24/22 23:00 59 L 18 145/78 H 97 06/24/22 21:31 59 L 16 130/79 97 06/24/22 20:52 59 L 06/24/22 20:49 59 L 14 144/81 H 96 06/24/22 20:22 36.6 C 60 18 169/101 H 98 O2 Del Method 06/25/22 07:00 Room Air 06/25/22 01:38 06/25/22 03:09 Room Air 06/25/22 01:32 Room Air 06/24/22 23:00 Room Air 06/24/22 21:31 Room Air 06/24/22 20:52 06/24/22 20:49 Room Air 06/24/22 20:22 Room Air Laboratory Results WBC 4.71, hemoglobin 12.0, hematocrit 35.8, platelet count 245, sodium 139, potassium 3.8, BUN 18, creatinine 0.58, glucose 102, hemoglobin A1c 5.8, calcium 8.6, troponin 1283, was 18.1 yesterday, triglycerides 50, cholesterol 172, LDL 85, VLDL 10, HDL 77, TSH 1.256, Lyme screening negative, SARS-CoV-2 negative Diagnostic Findings Carotid ultrasound unremarkable, no hemodynamically significant stenosis within either carotid artery, vertebral flow antegrade bilaterally. MRI/MRA of the brain are as described in the history of present illness. Echocardiogram revealed sinus bradycardia, normal left ventricular size, wall thickness, wall motion, EF 55 to 60%, no significant valvular disease, no atrial septal defect, left atrial size normal. PG Care Time/CCT Total # of Minutes Spent Total Time Spent with Patient: Total time spent is greater than 50% in coordination of care (as documented) at patient's floor/unit and/or counseling patient:80 80 min Coding Level of Care Code 59898 INT INP/OBS CARE 3/75MIN Diagnoses Arm pain, left M79.602 Elevated troponin I level R77.8 Numbness and tingling in left arm R20.0; R20.2 Intracranial vascular stenosis I67.9
[2022-06-25 07:59] LABS: Estimated Average Glucose 120 mg/dl; Hemoglobin A1C 5.8 % (4.5-5.6)
--- NOTE | 2022-06-25 08:13 | XRay Report ---
XR shoulder LT min 2V routine CLINICAL HISTORY: Left arm numbness and pain. COMPARISON STUDY: None. FINDINGS: No fracture or dislocation within the left shoulder. Moderate degenerative changes noted wi thin the left shoulder. No significant soft tissue swelling. IMPRESSION: Moderate osteoarthritis within the left shoulder. No acute fractures. ACT 112: Negative or not required by law. Electronically signed by: Donte Pichardo M.D. 06/25/2022 8:12 AM
--- NOTE | 2022-06-25 08:30 | XRay Report ---
XR chest 1V portable HISTORY: Atypical chest pain COMPARISON: None. FINDINGS: The lungs are clear. Cardiac silhouette is top normal in size. No pleural effusions. No pne umothorax. IMPRESSION: No acute process. ACT 112: Negative or not required by law. Electronically signed by: Donte Pichardo M.D. 06/25/2022 8:29 AM
[2022-06-25] MEDS ORDERED: METOPROLOL SUCC 25MG EXT REL TAB PO SCH (09:00)
[2022-06-25] MEDS ORDERED: METOPROLOL SUCC 50MG EXT REL TAB PO SCH (09:00)
[2022-06-25] MEDS ORDERED: ASPIRIN 81 MG CHEW ONE (09:08)
--- NOTE | 2022-06-25 09:15 | Ultrasound Report ---
BILATERAL CAROTID DOPPLER STUDY HISTORY: Left arm numbness. Transient ischemic attack. COMPARISON: None. TECHNIQUE: Real-time, grayscale, and color Doppler sonography of the carotid arteries was performed. Imaging reviewed in the transverse and longitudinal planes. All measurements were calculated based on NASCET criteria. FINDINGS: Antegrade flow is seen in the bilateral vertebral arteries. Minimal calcified plaque within the bilateral carotid bifurcations. The peak systolic velocity within the right ICA is 63 cm/s. The right systolic ratio is 1.3. The peak systolic velocity within the left ICA is 71 cm/s. The left systolic ratio is 1.3. IMPRESSION: No hemodynamically significant stenosis seen within the carotid arteries. ACT 112: Negative or not required by law. Electronically signed by: Donte Pichardo M.D. 06/25/2022 9:14 AM
--- NOTE | 2022-06-25 10:23 | Hospitalist Progress Note ---
Date of Service June 25, 2022 Assessment & Plan (1) NSTEMI (non-ST elevated myocardial infarction): Plan: CAD noted on cath, no PCI required, LV gram revealed small wall motion abnormality. Possible takatsobu effect with recent stressors. Cont medical therapy per cardiology. (2) Numbness and tingling in left arm: Plan: resolved (3) Arm pain, left: Plan: numbness and pain is resolved. She does have intracranial stenosis seen on MRA head. CTA with contrast recommended to evaluate further, however, per neurology this would not be responsible for her symptoms. May be able to be worked up as outpatient. Hold on further contrast for at least 48 hours. (4) Intracranial vascular stenosis: Plan: MRA with high grade stenosis seen. Per neurology, consider outpatient CT angiogram of the head and neck. No contrast repeat for at least 48 hours. Full Code Heparin Dispo-to home Devika Plasencia DO [place] Hospitalist Admission and Anticipated Discharge Date Admission Date: June 25, 2022 Subjective 66 yo nonsmoker presented with left arm pain, diaphoresis and numbness she underwent cardiac cath today with minimal CAD found medical therapy recommended trop marco antonio overnight. mild wall abnormality noted on LV gram . post procedure she is recovering well and out of pain. Review of Systems Review of Systems: All systems were reviewed and negative except as indicated in subjective above. Physical Exam Physical Exam: CONSTITUTIONAL: WNWD, vitals as above, generally well-appearing, NAD EYES: normal conjunctivae, no scleral icterus ENT: external ear and nose normal, MMM NECK: trachea midline RESPIRATORY: clear to auscultation bilaterally, no crackles, rales or wheezes, normal respiratory effort CARDIOVASCULAR: regular rate and rhythm, S1 and 2 heard without murmurs, gallops or rubs, no JVD, no peripheral edema CHEST: inspection of chest was normal GASTROINTESTINAL: soft, nontender, ND, no guarding MUSCULOSKELETAL: strength 5/5 throughout, head is normocephalic and atraumatic SKIN: warm and dry, TR band in place on right wrist. NEUROLOGIC: CN 2-12 grossly intact, no sensory deficit, normal cognition, n ormal speech, no tremor PSYCHIATRIC: alert cooperative and oriented to person, place and time. Euthymic mood, makes good eye contact, language grossly intact, recent and remote memory grossly intact. Results & Data Results & Data Vital Signs (Past 12 Hours) Vital Signs Temp Pulse Pulse Resp BP Pulse Ox O2 Del Method 06/25/22 09:11 71 145/77 H 06/25/22 08:00 64 06/25/22 07:00 36.5 C 58 L 16 135/73 97 Room Air 06/25/22 01:38 76 06/25/22 03:09 36.4 C L 64 18 165/97 H 97 Room Air 06/25/22 01:32 36.5 C 60 18 153/90 H 97 Room Air 06/24/22 23:00 59 L 18 145/78 H 97 Room Air Laboratory Results Short CBC 06/24/22 06/25/22 Range/Units 20:32 03:30 WBC 4.50 L 4.71 L (4.8-10.8) K/ul Hgb 12.8 12.0 (12.0-16.0) g/dl Hct 37.1 35.8 L (37.0-47.0) % Plt Count 362 345 (130-400) K/uL BMP 06/24/22 06/25/22 20:32 03:30 Sodium 139 139 Potassium 3.8 3.8 Chloride 107 107 Carbon Dioxide 24 25 BUN 18 18 Creatinine 0.72 0.58 L Glucose 110 H 102 H Calcium 9.1 8.6 Liver Function 06/24/22 Range/Units 20:32 Total Bilirubin 0.6 (0.2-1.0) mg/dl AST 20 (13-39) U/L ALT 11 (7-52) U/L Alkaline Phosphatase 57 (34-104) U/L Albumin 4.1 (3.4-5.0) gm/dl Diagnostic Findings Chest X-Ray 06/24/22 23:09 XR chest 1V portable HISTORY: Atypical chest pain COMPARISON: None. FINDINGS: The lungs are clear. Cardiac silhouette is top normal in size. No pleural effusions. No pneumothorax. IMPRESSION: No acute process. ACT 112: Negative or not required by law. Electronically signed by: Donte Pichardo M.D. 06/25/2022 8:29 AM Shoulder X-Ray 06/24/22 23:57 XR shoulder LT min 2V routine CLINICAL HISTORY: Left arm numbness and pain. COMPARISON STUDY: None. FINDINGS: No fracture or dislocation within the left shoulder. Moderate degenerative changes noted within the left shoulder. No significant soft tissue swelling. IMPRESSION: Moderate osteoarthritis within the left shoulder. No acute fractures. ACT 112: Negative or not required by law. Electronically signed by: Donte Pichardo M.D. 06/25/2022 8:12 AM Brain MRI 06/25/22 00:15 Exam(s): MRI HEAD W/WO Contrast IV Amt: 5.5cc gadavist EXAM: MR Head Without and With Intravenous Contrast CLINICAL HISTORY: Reason for exam: r/o SDH. TECHNIQUE: Magnetic resonance images of the head/brain without and with intravenous contrast in multiple planes. CONTRAST: Patient received 5.5cc gadavist of IV contrast COMPARISON: Comparison made to prior noncontrast head CT from June 24, 2022 at 9:39 PM. FINDINGS: Brain: Mild nonspecific white matter changes. The flow voids at the base of the brain are intact. There is a brightly enhancing dural base lesion along the anterior falx demonstrates the same size, shape and morphology of the dense lesion demonstrated on the prior head CT. No acute infarct. Ventricles: Unremarkable. No ventriculomegaly. Bones/joints: Unremarkable. Sinuses: Unremarkable as visualized. No acute sinusitis. Mastoid air cells: Unremarkable as visualized. No mastoid effusion. Orbits: Unremarkable as visualized. IMPRESSION: No evidence of extra-axial blood. The previously described dense lesion along the falx is consistent with a tiny meningioma Mild nonspecific white matter changes. Electronically signed by: Ese Henley MD 06/25/22 01:35 AM Head MRA 06/25/22 00:15 Exam(s): MRA HEAD Without Contrast EXAM: MR Angiography Head Without Intravenous Contrast CLINICAL HISTORY: Reason for exam: tia. TECHNIQUE: Magnetic resonance angiography images of the head without intravenous contrast. COMPARISON: No relevant prior studies available. FINDINGS: Right internal carotid artery: No acute findings. Intracranial segment is patent with no significant stenosis. No aneurysm. Right anterior cerebral artery: Unremarkable. No occlusion or significant stenosis. No aneurysm. Right middle cerebral artery: Unremarkable. No occlusion or significant stenosis. No aneurysm. Right posterior cerebral artery: Unremarkable. No occlusion or significant stenosis. No aneurysm. Right vertebral artery: Unremarkable as visualized. Left internal carotid artery: No acute findings. Intracranial segment is patent with no significant stenosis. No aneurysm. Left anterior cerebral artery: Unremarkable. No occlusion or significant stenosis. No aneurysm. Left middle cerebral artery: There is a focal stenosis of the proximal left M2 segment with a beaded appearance of the distal vessel. No aneurysm. Left posterior cerebral artery: Unremarkable. No occlusion or significant stenosis. No aneurysm. Left vertebral artery: Unremarkable as visualized. Basilar artery: Unremarkable. No occlusion or significant stenosis. No aneurysm. IMPRESSION: Findings concerning for a high-grade focal stenosis of the proximal left M2 segment with beaded appearance of the distal vessel concerning for acute thromboembolic disease. Electronically signed by: Ese Henley MD 06/25/22 01:08 AM Carotid Doppler Study 06/25/22 01:53 BILATERAL CAROTID DOPPLER STUDY HISTORY: Left arm numbness. Transient ischemic attack. COMPARISON: None. TECHNIQUE: Real-time, grayscale, and color Doppler sonography of the carotid arteries was performed. Imaging reviewed in the transverse and longitudinal planes. All measurements were calculated based on NASCET criteria. FINDINGS: Antegrade flow is seen in the bilateral vertebral arteries. Minimal calcified plaque within the bilateral carotid bifurcations. The peak systolic velocity within the right ICA is 63 cm/s. The right systolic ratio is 1.3. The peak systolic velocity within the left ICA is 71 cm/s. The left systolic ratio is 1.3. IMPRESSION: No hemodynamically significant stenosis seen within the carotid arteries. ACT 112: Negative or not required by law. Electronically signed by: Donte Pichardo M.D. 06/25/2022 9:14 AM Medications Administered Current Inpatient Medications Acetaminophen (Acetaminophen 325 Mg Tab) 650 mg PO Q4H PRN PRN Reason: Pain or Fever Stop: 07/25/22 01:37 Aspirin (Aspirin 81 Mg Chew) 81 mg PO DAILY [facility] Stop: 07/26/22 08:59 Heparin Sodium (Porcine) (Heparin Sod 5,000 Unit/0.5 Ml Vial) 5,000 units SQ Q8 CALEB Stop: 07/25/22 05:59 Last Admin: 06/25/22 06:14 Dose: 5,000 units Promethazine HCl 6.25 mg/ (Sodium Chloride) 50.25 mls @ 201 mls/hr IV Q6H PRN PRN Reason: Nausea And Vomiting Stop: 07/25/22 00:01 Lactated Ringer's (Lr) 1,000 mls @ 60 mls/hr IV .[id number] ONE Stop: 06/25/22 16:43 Last Admin: 06/25/22 01:46 Dose: 60 mls/hr Lorazepam (Lorazepam 0.5 Mg Tab) 0.25 mg PO TID PRN PRN Reason: Anxiety Stop: 07/25/22 00:01 Metoprolol Succinate (Metoprolol Succ 25mg Ext Rel Tab) 25 mg PO QAM CALEB Stop: 07/25/22 08:59 Last Admin: 06/25/22 09:13 Dose: 25 mg Morphine Sulfate (Morphine Sulfate 2 Mg/Ml Carp) 2 mg IV Q3H PRN PRN Reason: Pain Stop: 07/09/22 00:01 Tramadol HCl (Tramadol Hcl 50 Mg Tablet) 25 - 50 mg PO Q4H PRN PRN Reason: Pain Stop: 07/25/22 00:01
--- NOTE | 2022-06-25 11:06 | Cardiology Consultation ---
Date of Consultation June 25, 2022 Assessment & Plan (1) NSTEMI (non-ST elevated myocardial infarction): (2) Elevated troponin: (3) Hypertension: Plan IMPRESSION: 66 year old female who initially presents with concerns regarding left arm and jaw pain as described in HPI. Concerns for NSTEMI given EKG changes in inferior and lateral leads as well as progressive elevation in HS Troponin. Cause in question-- Ischemic vs stress mediated. PLAN: Patient NPO for heart cath with Dr. Vasques this afternoon to rule out ischemia cause to her symptoms. Risk vs benefit of procedure again discussed along with potential findings of cardiac cath. Patient agreeable to moving forward. Patient started on ASA this morning. Continue IV heparin till heart cath. Future considerations of starting statin therapy. LDL currently 85. Pending results will likely lower LDL goal below 70. Continue Losartan and Metoprolol as ordered. Case discussed with Dr. Vasques- will follow. Supervising Physician Co-Signing Physician Notes Patient was seen and personally examined. Clinical history notable for acute emotional stress in the past 2 days presented with symptoms of acute weakness fatigue left arm and axillary discomfort. Neurologic evaluation unrevealing troponins elevated with dynamic EKG and ST segment changes last evening with T wave inversion inferior leads. Echocardiogram with preserved LV systolic function. Discussed options of management and recommended diagnostic coronary angiography question current event secondary to acute myocardial ischemia versus stress mediated Procedure and risks explained in detail to patient and family. Patient anticoagulated with heparin. Has already received aspirin and beta-dav, IV fluids History of Present Illness Reason for Consultation: NSTEMI Requesting Physician: Samantha zapienist Attending Physician: Devika Plasencia DO History of Present Illness 66-year-old female who initially presented to [facility] emergency department due to a sudden onset of left upper extremity discomfort radiating to the neck/jaw associated with diaphoresis as well as some numbness and tingling. Patient is a resident of [place]. Currently in town to visit family for the weekend. Symptoms initially thought to be neurologic, and a CTA of the head and neck was obtained. Brain MRI: Mild nonspecific white matter changes, no acute infarct MRA head: Findings concerning for high-grade focal stenosis of the proximal left M2 segment with beaded appearance of the distal vessel concerning for acute thromboembolic disease Carotid duplex: No hemodynamically significant stenosis within the carotid arteries. Was evaluated by neurology this morning: "Would consider obtaining a CT angiogr am of the head and neck to further evaluate what looks like a left MCA, M2 segment, stenosis. However, would first recommend cardiology evaluation as she may first need a cardiac catheterization". Lab work significant for an elevated high-sensitivity troponin (3.8>>18.1>>377.1>>1283.7) EKG showed sinus bradycardia, 56 bpm with an incomplete right bundle branch block and T wave inversions in inferior and lateral leads. Echo showed a normal LVEF of 55 to 60% without wall motion abnormalities. No significant valvular disease or evidence of intra-atrial shunting. IV heparin was started. Patient normally maintains on losartan 50 mg nightly and metoprolol 25 mg daily. Tele: SB 50-60s Upon entrance into the room patient resting comfortably in bed. Family at bedside. No further reoccurrence of arm pain/diaphoresis. Denies any prior episodes of chest pain or shortness of breath. No further jaw/neck pain. Denies any prior history of CAD, CVA, dysrhythmia, or rheumatic fever. No smoking, but does have second hand smoking exposure. Social alcohol use. 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); Hx Alcohol Use: Yes Alcohol type: beer and wine Hx Substance Use: No Preferred Language: Setswana Communication Ability: Effective Supervisor Front Required: No Beliefs That Will Affect Care: None Current Living Situation: Alone Other Information That Helps Us Care for You: No Feels Safe at Home: Yes Safety Concerns: Feels Safe At This Time Assistive Devices: Contacts Review of Systems Review of Systems: All systems reviewed & are unremarkable except as noted in HPI & below Physical Exam Constitutional: WD/WN, vitals as above no acute distress Neck: normal visual inspection and trachea midline Respiratory: normal respiratory effort, lungs clear to auscultation Cardiovascular: RRR, no murmur, no edema Heart Sounds: normal S1 and normal S2; no murmur Vessels: no JVD Extremities: no edema Chest (Breasts): Breast: normal inspection of axillae Gastrointestinal (Abdomen): normal bowel sounds, soft, nontender, no hepatosplenomegaly Musculoskeletal: Extremities: extremities normal to inspection Skin: no rashes, warm and dry Neurologic: PERRL, EOMI, accommodation nl, no face palsy, no dysarthria Psychiatric: A+Ox3, euthymic affect Results & Data Vital Signs (Past 12 Hours) Vital Signs Temp Pulse Pulse Resp BP Pulse Ox O2 Del Method 06/25/22 09:11 71 145/77 H 06/25/22 08:00 64 06/25/22 07:00 36.5 C 58 L 16 135/73 97 Room Air 06/25/22 01:38 76 06/25/22 03:09 36.4 C L 64 18 165/97 H 97 Room Air 06/25/22 01:32 36.5 C 60 18 153/90 H 97 Room Air 06/24/22 23:00 59 L 18 145/78 H 97 Room Air Laboratory Results Cardiac Enzymes 06/24/22 06/24/22 06/25/22 Range/Units 20:32 22:23 03:30 AST 20 (13-39) U/L Troponin I High Sens 3.8 18.1 H D 377.1 H* D (0-14) pg/ml 06/25/22 Range/Units 08:16 AST (13-39) U/L Troponin I High Sens 1283.7 H* D (0-14) pg/ml Coagulation 06/24/22 06/25/22 Range/Units 20:32 03:30 PT 11.4 (9.0-12.0) Seconds APTT 27.2 30.6 (21.0-31.0) Seconds Lipids 06/25/22 Range/Units 03:30 Triglycerides 50 (0-150) mg/dl Cholesterol 172 (0-200) mg/dl HDL Cholesterol 77 mg/dl Cholesterol/HDL Ratio 2.2 (0-5) CBC 06/24/22 06/25/22 Range/Units 20:32 03:30 WBC 4.50 L 4.71 L (4.8-10.8) K/ul RBC 3.94 L 3.72 L (4.20-5.40) M/uL Hgb 12.8 12.0 (12.0-16.0) g/dl Hct 37.1 35.8 L (37.0-47.0) % Plt Count 362 345 (130-400) K/uL Neut # (Auto) 2.33 (1.40-6.50) K/uL Lymph # (Auto) 1.68 (1.2-3.4) K/uL Bertie # (Auto) 0.53 (0.11-0.59) K/uL Eos # (Auto) 0.14 (0-0.50) K/uL Baso # (Auto) 0.03 (0-0.2) K/uL Comprehensive Metabolic Panel 06/24/22 06/25/22 Range/Units 20:32 03:30 Sodium 139 139 (136-145) mmol/L Potassium 3.8 3.8 (3.5-5.1) mmol/L Chloride 107 107 (98-107) mmol/L Carbon Dioxide 24 25 (21-32) mmol/L BUN 18 18 (6-23) mg/dl Creatinine 0.72 0.58 L (0.6-1.2) mg/dl Glucose 110 H 102 H (70-99(Fasting)) mg/dl Calcium 9.1 8.6 (8.6-10.3) mg/dl AST 20 (13-39) U/L ALT 11 (7-52) U/L Alkaline Phosphatase 57 (34-104) U/L Total Protein 6.5 (6.0-8.3) gm/dl Albumin 4.1 (3.4-5.0) gm/dl Intake and Output 06/24/22 06/25/22 06/25/22 22:59 06:59 14:59 Intake Total 600 / 600 Balance 600 / 600 Intake: IV 500 / 500 Sodium Chloride 0.9% 1000ML 500 500 / 500 ml @ 999 mls/hr IV .Q31M ONE Rx#:[id number] Oral 100 / 100 Other: # Unmeasured Voids 1 1 Weight 55.5 kg 54.8 kg Weight Measurement Method Chair Scale Built in [facility]
[2022-06-25] MEDS ORDERED: HEPARIN 25000 UNIT/500 ML D5W IV ONE (11:07)
[2022-06-25] MEDS ORDERED: Heparin IV Adult Wt-Based Low-Dose WITH Bolus Protocol STA (11:12)
[2022-06-25] MEDS ORDERED: HEPARIN SOD (PORCINE) 1000 UNIT/ML IV SCH (11:30)
[2022-06-25] MEDS ORDERED: HEPARIN SODIUM/DEXTROSE 25,000 UNITS/500 ML BAG IV SCH (11:30)
--- NOTE | 2022-06-25 12:47 | Electrocardiogram Report ---
Test Reason : Blood Pressure : / mmHG Vent. Rate : 050 BPM Atrial Rate : 050 BPM P-R Int : 000 ms QRS Dur : 092 ms QT Int : 426 ms P-R-T Axes : 000 000 052 degrees QTc Int : 388 ms Poor data quality, interpretation may be adversely affected Sinus bradycardia Incomplete right bundle branch block Nonspecific ST and T wave abnormality Abnormal ECG No previous ECGs available Confirmed by Lonnie Rock ([id number]) on 06/25/2022 12:46:35 PM Referred By: REFERRED SELF Confirmed By:Lonnie Rock
--- NOTE | 2022-06-25 12:49 | Electrocardiogram Report ---
Test Reason : Blood Pressure : / mmHG Vent. Rate : 056 BPM Atrial Rate : 056 BPM P-R Int : 170 ms QRS Dur : 106 ms QT Int : 458 ms P-R-T Axes : 009 037 -22 degrees QTc Int : 441 ms Sinus bradycardia Incomplete right bundle branch block Poor R wave progression, consider anterior WA vs. lead placement vs. LVH Abnormal ECG When compared with ECG of 24-JUN-2022 22:02, (unconfirmed) Non-specific change in ST segment in Inferior leads T wave inversion now evident in Inferior leads Confirmed by Lonnie Rock ([id number]) on 06/25/2022 12:49:01 PM Referred By: REFERRED SELF Confirmed By:Lonnie Rock
--- NOTE | 2022-06-25 12:58 | Electrocardiogram Report ---
Test Reason : Blood Pressure : / mmHG Vent. Rate : 059 BPM Atrial Rate : 059 BPM P-R Int : 174 ms QRS Dur : 104 ms QT Int : 448 ms P-R-T Axes : 060 013 076 degrees QTc Int : 443 ms Sinus bradycardia Incomplete right bundle branch block Abnormal ECG When compared with ECG of 24-JUN-2022 20:27, (unconfirmed) ST no longer depressed in Inferior leads QT has lengthened Confirmed by Lonnie Rock ([id number]) on 06/25/2022 12:58:45 PM Referred By: REFERRED SELF Confirmed By:Lonnie Rock
--- NOTE | 2022-06-25 13:17 | Electrocardiogram Report ---
Test Reason : Blood Pressure : / mmHG Vent. Rate : 048 BPM Atrial Rate : 048 BPM P-R Int : 176 ms QRS Dur : 100 ms QT Int : 454 ms P-R-T Axes : 039 -25 036 degrees QTc Int : 405 ms Sinus bradycardia Incomplete right bundle branch block Borderline ECG When compared with ECG of 24-JUN-2022 22:27, (unconfirmed) QRS axis Shifted left T wave inversion no longer evident in Inferior leads T wave inversion no longer evident in Anterior leads Confirmed by Lonnie Rock ([id number]) on 06/25/2022 1:17:00 PM Referred By: REFERRED SELF Confirmed By:Lonnie Rock
--- NOTE | 2022-06-25 13:29 | Pre Anesthesia Assessment ---
Date of Service June 25, 2022 Pre Sedation Assessment Vital Signs Temp Pulse Pulse Resp BP BP Pulse Ox 06/25/22 11:00 36.4 C L 55 L 18 155/86 H 97 06/25/22 09:11 71 145/77 H 06/25/22 08:00 64 06/25/22 07:00 36.5 C 58 L 16 135/73 97 06/25/22 01:38 76 06/25/22 03:09 36.4 C L 64 18 165/97 H 97 06/25/22 01:32 36.5 C 60 18 153/90 H 97 06/24/22 23:00 59 L 18 145/78 H 97 06/24/22 21:31 59 L 16 130/79 97 06/24/22 20:52 59 L 06/24/22 20:49 59 L 14 144/81 H 96 06/24/22 20:22 36.6 C 60 18 169/101 H 98 O2 Del Method 06/25/22 11:00 Room Air 06/25/22 09:11 06/25/22 08:00 06/25/22 07:00 Room Air 06/25/22 01:38 06/25/22 03:09 Room Air 06/25/22 01:32 Room Air 06/24/22 23:00 Room Air 06/24/22 21:31 Room Air 06/24/22 20:52 06/24/22 20:49 Room Air 06/24/22 20:22 Room Air Cardiovascular + regular rate and + regular rhythm + S1 normal and + S2 normal; no murmur + femoral pulses present and + radial pulses present; no JVD Respiratory normal respiratory effort, lungs clear to auscultation Pre-Sedation Airway Assessment Smoking Status: Never smoker Hx Sleep Apnea: No Short, Thick Neck: No Thyromental Distance: > or= 3.5 Finger Breadths Oral Cavity: + WNL Mallampati Class: III ASA: ASA3 NPO Status Date of Last Intake of Fluids: 06/25/22 Time of Last Intake of Fluids: 08:00 Last Oral Intake of Fluids Comment: sip with meds Date of Last Intake of Solid Food: 06/24/22 Procedure Planning Contraindications for Sedation: none Current Medications Reviewed: Yes Notes The planned sedation has been discussed with the patient. Informed Consent was obtained. I have identified the patient, determined the appropriateness of sedation and have assessed the patient immediately prior to the procedure. All medicine(s) and interventions are by my order.
[2022-06-25] MEDS ORDERED: HEPARIN (PORCINE) 1000 UNIT/ML 10 ML (CATH LAB USE ONLY) ONE (13:37)
[2022-06-25] MEDS ORDERED: MIDAZOLAM HCL 1 MG/ML 2ML VIAL ONE (13:37)
[2022-06-25] MEDS ORDERED: niCARdipine HCL INJ 2.5 MG/ML 10 ML AMP ONE (13:37)
[2022-06-25] MEDS ORDERED: fentaNYL citrate PF 100 MCG/2 ML VIAL ONE (13:37)
[2022-06-25] MEDS ORDERED: NITROGLYCERIN/D5W 100MCG/ML 20ML SYR ONE (13:38)
--- NOTE | 2022-06-25 14:08 | Post Anesthesia Assessment ---
Date of Service June 25, 2022 Post Sedation Assessment Vital Signs Temp Pulse Pulse Resp BP BP Pulse Ox 06/25/22 11:00 36.4 C L 55 L 18 155/86 H 97 06/25/22 09:11 71 145/77 H 06/25/22 08:00 64 06/25/22 07:00 36.5 C 58 L 16 135/73 97 06/25/22 01:38 76 06/25/22 03:09 36.4 C L 64 18 165/97 H 97 06/25/22 01:32 36.5 C 60 18 153/90 H 97 06/24/22 23:00 59 L 18 145/78 H 97 06/24/22 21:31 59 L 16 130/79 97 06/24/22 20:52 59 L 06/24/22 20:49 59 L 14 144/81 H 96 06/24/22 20:22 36.6 C 60 18 169/101 H 98 O2 Del Method 06/25/22 11:00 Room Air 06/25/22 09:11 06/25/22 08:00 06/25/22 07:00 Room Air 06/25/22 01:38 06/25/22 03:09 Room Air 06/25/22 01:32 Room Air 06/24/22 23:00 Room Air 06/24/22 21:31 Room Air 06/24/22 20:52 06/24/22 20:49 Room Air 06/24/22 20:22 Room Air Recovery Score Activity: Moves 4 extremities Respiration: Deep Breath/Cough Circulation: +/-20% PreAnes Value Consciousness: Fully Awake Oxygen Saturation: > 92% On Room Air Discharge Sedation Level of Care: Phase I Post Sedation Plan On clinical assessment, the patient appears to have tolerated the sedation without complications. Patient is recovering as anticipated. Patient will continue to be monitored by nursing and may be discharged when sedation discharge criteria are met per below protocol. Upon Completions of procedure up to 15 minutes continue every 5 minute vital signs and the P.A.R. score; then discharge to a Phase I or Fast Track to Phase II per the following guidelines: * Discharge Patient to appropriate Phase II area if PAR is 8 or greater or return to pre- procedure baseline. The post - procedure orders will be as directed. * If PAR score is less than 8 or not return to pre-procedure baseline then patient will follow Phase I monitoring till PAR is reached for Phase II. The Phase I may be done in procedure room or may call to secure a Phase I area. * If naloxone or flumazenil are used for reversal, hold in Phase I for continued monitoring from when last reversal dose was given for a minimum of 60 minutes or longer pending the nurse and/or physician discretion of patient condition before discharge to Phase II. Please call the Sedation Physician to re-evaluate and complete post-note for discharge to Phase II area. Do NOT discharge from procedure sedation or Phase 1 until post- sedation evaluation note is complete by procedure /sedation MD Sedation Discharge Instructions to be given to the patient at discharge to home.
[2022-06-25] MEDS ORDERED: SODIUM CHLORIDE 0.9% 1000ML 1,000 ML IV SCH (14:15)
--- NOTE | 2022-06-25 14:16 | Cardiac Catheterization ---
Cardiac Cath Procedure Brief Procedure Date June 25, 2022 Pre-Procedure Diagnosis Pre-Procedure Diagnosis: Non STEMI and Angina AUC Score AUC Score: 8 Post-Procedure Diagnosis Post-Procedure Diagnosis: Moderate CAD (Single branch vessel trivial sized) and Normal LV Systolic Function Procedure(s) Performed Procedure(s) Performed: Coronary Angiography, Left Heart Cath and LV Angiography Seam Steamer Bryant Vasques MD Executive Sales Assistant(s) Timoteo Malcolm/Rosalind Guerrier Estimated Blood Loss Estimated Blood Loss: <15cc Medication(s) Medication(s): Fentanyl (12.5 mcg IV), Heparin (5000 units IV), Lidocaine 1% (Local infiltration access site), Nicardipine (250 mcg intra-arterial after arterial sheath insertion) and Versed (1 mg IV) Preliminary Findings Impression: Right dominant coronary anatomy with mild luminal irregularities Trivial branch vessel occlusion distal posterior descending artery Focal hypokinesis small inferobasal wall segment with normal LV systolic function Recommendations Recommendations: Medical Therapy and/or Counseling Specimens Specimens: None Fluids (cc crystalloids) Fluids (cc crystalloids): 65 Anesthesia Start time: 1344, stop time: 1404 Procedural Complication(s) None Disposition PCU
--- NOTE | 2022-06-25 14:18 | Cardiac Catheterization ---
Cardiac Cath Procedure Full Procedure Date June 25, 2022 Pre-Procedure Diagnosis Pre-Procedure Diagnosis: Non STEMI and Angina AUC Score AUC Score: 8 Post-Procedure Diagnosis Post-Procedure Diagnosis: Moderate CAD (Single branch vessel trivial sized) and Normal LV Systolic Function Procedure(s) Performed Procedure(s) Performed: Coronary Angiography, Left Heart Cath and LV Angiography Electro Mechanical Technician Bryant Vasques MD Bakery Worker(s) Timoteo Malcolm/Rosalind Guerrier Estimated Blood Loss Estimated Blood Loss: <15cc Medication(s) Medication(s): Fentanyl (12.5 mcg IV), Heparin (5000 units IV), Lidocaine 1% (Local infiltration access site), Nicardipine (250 mcg intra-arterial after arterial sheath insertion) and Versed (1 mg IV) Summary of Findings Impression: Right dominant coronary anatomy with mild luminal irregularities Trivial branch vessel occlusion distal posterior descending artery Focal discrete hypokinesis small inferobasal wall segment with normal LV systolic function Procedure: Left heart catheterization, coronary, LV angiography via right radial approach without difficulty Catheters: Long 6 Maldivian glide radial sheath, 5 Mal[place]ian [place], 5 Maldivian straight pigtail Complications: None Coronary angiography: Right dominant coronary anatomy Left main: Short with mild luminal irregularities but no obstruction Left anterior descending: Type III in distribution. Gives rise to a high diagonal branch and 2 additional small diagonal branches in its midportion. The left anterior descending has moderate luminal irregularities and tortuosity in its midportion but no obstruction. There is minimal calcification of the proximal segment. . The origin of the first diagonal branch is narrowed by 30 percent Left circumflex: Nondominant. It gives rise to a small first marginal an obtuse marginal and a moderately large posterolateral branch which bifurcates. There are mild luminal irregularities Right coronary artery:Dominant distribution. Gives rise to a sinoatrial branch and 2 right ventricular branches small in caliber and early takeoff posterior dscending artery and 2 posterior ventricular branches. The distal posterior descending artery is very thin in caliber with 1 small segment of diffuse disease. This segment can be seen filling via [id number] collateral LV angiography: There is a very small but discrete area of hypokinesis in the basilar mid inferior wall with otherwise preserved LV systolic function EF 60%. There is no mitral insufficiency LVEDP 12 Hemodynamics Rest Ao:: 151/60/108 Final Ao: 140/80/106 LV: 150/0/12 Recommendations Recommendations: Medical Therapy and/or Counseling Specimens Specimens: None Radiation Exposure (mGy) 256 Contrast (mls) 85 Fluids (cc crystalloids) Fluids (cc crystalloids): 65 Anesthesia Start time: 1344, stop time: 1404 Procedural Complication(s) None Disposition PCU I attest to the content of the Intraoperative Record and any orders documented therein. Any exceptions are noted below. ACC Data: Teacher Resource Cardiac Status Clinical evaluation leading to the procedure CAD Presenation: Non STEMI Cardiogenic Shock within 24 Hours: No Cardiac Arrest within 24 Hours: No Imaging Studies Past 6 Months: Yes Stress Studies Past 6 Months: No Standard Exercise Test: No Stress Echocardiogram: No Stress Testing w/SPECT MPI: No STEMI OR Non-STEMI Symptom Onset Date: 06/24/22 Symptom Onset Time: 18:00 Coronary Anatomy Dominant: Right Left Main (% Stenosis): Mid (Short vessel with mild luminal irregularities) LAD (% Stenosis): Mid (Moderate luminal irregularities) D1 (% Stenosis): Ostial (30) D2 (% Stenosis): Normal Circumflex (% Stenosis): Normal OM1 (% Stenosis): Normal OM2 (% Stenosis): Normal L PL1 (% Stenosis): Normal RCA (% Stenosis): Mid (Mild luminal irregularities) R PDA (% Stenosis): Distal (Very trivial vessel in the very distal portion of distribution is diseased and subtotally occluded with [id number] collaterals fill) R PL1 (% Stenosis): Normal R PL2 (% Stenosis): Normal Left Ventricular Angiography EF (%): 60 Wall Motion: Inferior (Discrete focal basal hypokinesis) Mitral Regurgitation: None Diagnostic Physicians Name: Bryant Vasques MD Status: Urgent Closure Device Percutaneous Entry Location: Radial Closure Device: Radial Band Recommendations: Medical Therapy and/or Counseling
--- NOTE | 2022-06-25 17:00 | Communication Note ---
Date of Service: June 25, 2022 Code 44 attestation: 66 years old female was admitted with NSTEMI and underwent cardiac catheterization and was appropriately managed by the job press operator and the attending physician. She also has had evaluation by neurologist. She was eventually discharged home in a good medical condition. By CMS guidelines, a determination that the admission or continued stay is not medically necessary has been made by a member of the UR committee and a physician for this hospital stay, therefore a Code 44 will be completed and the Inpatient admission will be changed to outpatient. Dr Tye Berry Member UR Committee
[2022-06-25] MEDS ORDERED: LOSARTAN POTASSIUM 50 MG TAB PO SCH (21:00)
[2022-06-26] MEDS ORDERED: ASPIRIN 81 MG CHEW PO SCH (09:00)
== END 2022-06-25 18:40 | disposition home or self-care (01) | DRG 281 ==
LOC: ED 20:05 → 2E 20:05 → SUATTDRO 06-25 → 2E 06-25 00:42